=== PATIENT | male | born 1960 | race American Indian/Alaskan Native ===

== ENCOUNTER 2022-04-06 09:33 | Emergency (ER) | payer BC ==
[~2022-04-06] VITALS: Ht 175.3 cm; Wt 112.7 kg
[2022-04-06 09:49] VITALS: BP 110/85
== END 2022-04-06 11:02 | disposition home or self-care (01) ==
LOC: ER 09:34
DX: J40 Bronchitis, not specified as acute or chronic (principal); F17.200 Nicotine dependence, unspecified, uncomplicated; Z59.00 Homelessness unspecified; Z91.030 Bee allergy status
CPT/HCPCS: 71046; 99283

== ENCOUNTER 2024-02-01 05:55 | Emergency (ER) | payer BC ==
[~2024-02-01] VITALS: Ht 175.3 cm; Wt 120.0 kg
[2024-02-01 06:01] VITALS: TEMP 99
[2024-02-01 07:19] VITALS: BP 101/62; PULSE 73; RESP 18; O2SAT 97
== END 2024-02-01 08:32 | disposition home or self-care (01) ==
LOC: ER 05:55
DX: S83.91XA Sprain of unspecified site of right knee, initial encounter (principal); Z56.0 Unemployment, unspecified; Z91.030 Bee allergy status; Z60.2 Problems related to living alone; W19.XXXA Unspecified fall, initial encounter; Y93.89 Activity, other specified; Y92.89 Other specified places as the place of occurrence of the external cause; Y99.8 Other external cause status
CPT/HCPCS: 29530; 73564; 99284

== ENCOUNTER 2025-04-11 17:46 | Inpatient (IN) | payer BC, OTHER ==
[~2025-04-11] VITALS: Ht 175.3 cm; Wt 105.4 kg
--- NOTE | 2025-04-11 17:57 | ELECTROCARDIOGRAPH REPORT ---
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 Azul Lu Measurements Intervals [place] Rate: 155 P: 131 MI: 143 QRS: -19 QRSD: 126 T: 14 QT: 321 QTc: 516 Interpretive Statements Sinus tachycardia Nonspecific intraventricular conduction delay Posterior infarct, acute (LCx) ST elevation, consider inferior injury Lateral leads are also involved Baseline wander in lead(s) II,aVF Electronically Signed On 04-11-2025 18:02:[address] Azul Lu Please click the below link to view image of tracing.
[2025-04-11 18:13] LABS: BASOPHILS # (AUTO) 0.1 X10'3 (0-0.2); BASOPHILS % (AUTO) 0.4 % (0-1); EOSINOPHILS # (AUTO) 0.2 X10'3 (0-0.9); EOSINOPHILS % (AUTO) 0.8 % (0-6); HEMATOCRIT 32.5 % (42.0-52.0); HEMOGLOBIN 10.4 g/dl (14.0-17.9); LYMPHOCYTES # (AUTO) 11.5 X10'3 (1.1-4.8); LYMPHOCYTES % (AUTO) 37.2 % (21-51); MEAN CORPUSCULAR HEMOGLOBIN 31.6 PG (27.0-31.0); MEAN CORPUSCULAR HGB CONC 31.9 g/dL (33.0-36.5); MEAN CORPUSCULAR VOLUME 99.1 FL (78-98); MEAN PLATELET VOLUME 9.7 FL (7.4-10.4); MONOCYTES # (AUTO) 5.9 X10'3 (0-0.9); MONOCYTES % (AUTO) 18.9 % (2-12); NEUTROPHILS # (AUTO) 13.2 X10'3 (1.8-7.7); NEUTROPHILS % (AUTO) 42.7 % (42-75); PLATELET COUNT 138 X10'3 (140-440); RED BLOOD COUNT 3.28 X10'6 (4.70-6.10)
[2025-04-11 18:37] LABS: ANION GAP 13 (8-16); BLOOD UREA NITROGEN 19 MG/DL (7-18); BUN/CREATININE RATIO 13.8 (10.0-20.0); CALCIUM 8.4 MG/DL (8.5-10.1); CHLORIDE 104 MMOL/L (99-107); CREATININE 1.38 MG/DL (0.60-1.10); GLUCOSE 140 MG/DL (70-104); POTASSIUM 3.9 MMOL/L (3.5-5.1); PRO BRAIN NATRIURETIC PEPTIDE 2383 PG/ML (0-125); SODIUM 142 MMOL/L (135-145); eCRCL 56 ML/MIN; eGFR 52 ML/MIN
--- NOTE | 2025-04-11 18:47 | RADIOLOGY REPORT ---
CHEST RADIOGRAPH Indication: CP Technique: Single frontal view of the chest was obtained COMPARISON: None FINDINGS: The cardiac silhouette is enlarged. The lungs demonstrate bilateral patchy airspace opacities. The pu lmonary vasculature is prominent. There is no pleural effusion.. There is no pneumothorax. IMPRESSION: 1. Cardiomegaly with pulmonary vascular congestion and bilateral patchy airspace opacities.
[2025-04-11 18:49] LABS: TOTAL CELLS COUNTED 100
[2025-04-11 18:50] LABS: ANISOCYTOSIS 1+; PLATELET ESTIMATE DECREASED
--- NOTE | 2025-04-11 19:08 | Physician Documentation ---
History of Present Illness ~ General Chief Complaint: Multiple Medical Complaints Stated Complaint: CP Time Seen by MD: 18:52 Primary Medical Doctor: Chuck Mode of Arrival: POV History of Present Illness Initial Comments Patient presents to the emergency room for evaluation of rapid heartbeat. He initially went to his dentist who noted his heart rate who sent him to the [facility] who sent him here. He denies history of prior instance of rapid heart rate. He denies any instance of new flutters or shortness of breath in the past several weeks. That has far as he is concerned his only complaint is his dental pain in the left side of his child which has been going ongoing. Denies chest pain nausea or vomiting. As far as when his last vital signs were taken he believes 4-5 days ago at an oncology clinic and states there was nothing noted at this time. Medication Reconciliation Allergies: Coded Allergies: venom-honey bee (Verified Allergy, Unknown, 04/11/25) Past Medical History Past Medical History: Pneumonia Past Surgical History: orthopedic surgeries Alcohol Use: None Drug Use: none Lives with: Alone Lives In: Home Occupation: unemployed Review of Systems ROS All review of systems negative except as per HPI Physical Exam Physical Exam Vital Signs: Source: Oral, Heart Rate: 156, Respiratory Rate: 18, BP: 103/68, Pulse Oximetry: 98, Weight: 105.600 Oxygen Flow Rate: 0 Physical Exam General: Patient is awake, alert, oriented x4 in no acute distress and well appearing.~ Head: Normocephalic and atraumatic. Eyes: Conjunctival normal. EOMI. PERRL. ENT: Mucous membranes moist. Neck: Supple, trachea is midline. Chest: Clear to auscultation bilaterally without rales, rhonchi, or wheezes. There is no accessory muscle use or retractions. Cardiac: Tachycardic and regular without murmurs, gallops, or rubs. Abd: Soft, nondistended, nontender, with normoactive bowel sounds. No guarding, rebound, or rigidity. Progress Progress Note Chemical cardioversion: Status post informed written consent 12 mg of adenosine was administered to patient while on monitoring manager. He had in his seen did have affect and we are able to tease out the patient is in atrial flutter and not SVT. Patient tolerated procedure well without complication. Total time of procedure 30 seconds. Results/Orders Results/Orders Orders - NOAM MCKEON MD Diltiazem-Ns 100mg/100ml (Cardizem-Ns 10 (04/11/25 21:40) Page Hospitalist (04/11/25 21:40) Fill Out Med Reconciliation (04/11/25 21:40) Completed Orders - NOAM MCKEON MD Normal Saline 1000ml (Sodium Chloride 10 (04/11/25 19:05) Ondansetron Inj. (Zofran 4mg/2ml Vial) (04/11/25 19:05) Adenosine Inj. (Adenocard Inj.) (04/11/25 19:05) Diltiazem Iv (Cardizem Iv 5mg/Ml Inj.) (04/11/25 19:55) Medications Received in ER Medications (Trade) Dose Ordered Sig/Thuy Route PRN Reason Start Time Stop Time Status Last Admin Dose Admin Sodium Chloride 1,000 ml @ 1,000 mls/hr ONCE ONCE IV 04/11/25 19:05 04/11/25 20:04 DC 04/11/25 19:26 1,000 MLS/HR (Zofran 4mg/2ml vial) 4 mg ONCE ONCE IV 04/11/25 19:05 04/11/25 19:06 DC 04/11/25 19:26 4 MG (Adenocard inj.) 12 mg ONCE ONCE IV 04/11/25 19:05 04/11/25 19:06 DC 04/11/25 20:14 12 MG (Cardizem IV 5mg/ ml inj.) 5 mg ONCE ONCE IV 04/11/25 19:55 04/11/25 19:56 DC 04/11/25 20:19 5 MG Diltiazem HCl 100 ml @ 5 mls/hr Q20H IV 04/11/25 21:40 04/11/25 21:59 5 MLS/HR Vital Signs 04/11/25 04/11/25 04/11/25 04/11/25 17:56 19:01 19:03 19:57 Pulse 150 156 147 Resp 16 18 18 10 B/P (MAP) 122/76 103/68 (80) 90/67 (75) Pulse Ox 98 98 98 O2 Flow Rate 0 04/11/25 04/11/25 04/11/25 04/11/25 20:19 20:30 21:59 22:02 Temp 98.7 Pulse 151 146 153 152 Resp 18 19 B/P (MAP) 104/72 101/80 (87) 111/75 108/67 (81) Pulse Ox 96 98 O2 Flow Rate 0 0 04/11/25 04/11/25 22:36 22:40 Pulse 153 153 Resp 20 B/P (MAP) 116/90 126/74 (91) Pulse Ox 98 O2 Flow Rate 0 Laboratory Tests Test 04/11/25 17:58 04/11/25 19:37 04/11/25 21:07 White Blood Count 31.0 *H Red Blood Count 3.28 L Hemoglobin 10.4 L Hematocrit 32.5 L Mean Corpuscular Volume 99.1 H Mean Corpuscular Hemoglobin 31.6 H Mean Corpuscular Hemoglobin Concent 31.9 L Red Cell Distribution Width 18.0 H Platelet Count 138 L Mean Platelet Volume 9.7 Neutrophils (%) (Auto) 42.7 Lymphocytes (%) (Auto) 37.2 Monocytes (%) (Auto) 18.9 H Eosinophils (%) (Auto) 0.8 Basophils (%) (Auto) 0.4 Neutrophils # (Auto) 13.2 H Lymphocytes # (Auto) 11.5 H Monocytes # (Auto) 5.9 H Eosinophils # (Auto) 0.2 Basophils # (Auto) 0.1 CBC Comment Differential Total Cells Counted 100 Neutrophils % (Manual) 60.0 Band Neutrophils % 1.0 Lymphocytes % (Manual) 17.0 L Monocytes % (Manual) 18.0 H Eosinophils % (Manual) 2.0 Metamyelocytes % 1.0 H Myelocytes % 1.0 H Platelet Estimate Decreased Red Blood Cell Morphology Perf Basophilic Stippling Anisocytosis 1+ Macrocytosis 1+ Sodium Level 142 Potassium Level 3.9 Chloride Level 104 Carbon Dioxide Level 25.0 Anion Gap 13 Blood Urea Nitrogen 19 H Creatinine 1.38 H Estimated GFR/1.73 m2 52 BUN/Creatinine Ratio 13.8 Glucose Level 140 H Hemoglobin A1c 4.7 Calcium Level 8.4 L Troponin I High Sensitivity 9 9 11 Pro-B-Type Natriuretic Peptide 2383 H Albumin 4.0 Chemistry Comments Troponin I High Sens Percent Delta 0 22 Troponin I Hi Sens Absolute Change 0 2 EKG/XRAY/CT/US/VASC/MRI EKG : Additional Comment EKG interpreted by myself shows time of 1752, rate 155 sinus tachycardia normal axis intraventricular conduction delay, nonspecific ST-T changes Chest X-Ray : Additional Comments Exam: CHEST,SINGLE VIEW CHEST RADIOGRAPH Indication: CP Technique: Single frontal view of the chest was obtained COMPARISON: None FINDINGS: The cardiac silhouette is enlarged. The lungs demonstrate bilateral patchy airspace opacities. The pulmonary vasculature is prominent. There is no pleural effusion.. There is no pneumothorax. IMPRESSION: 1. Cardiomegaly with pulmonary vascular congestion and bilateral patchy airspace opacities. Medical Decision Making Findings Patient presented to the emergency room for evaluation of his heart rate. Dif ferentials include but are not limited to SVT, atrial fib atrial flutter, anxiety therefore emergent labs and imaging indicated. Patient underwent attempted chemical cardioversion unsuccessfully. We are able to tease out atrial flutter during the process of giving the patient adenosine. Cardizem drip initiated. This is a new diagnosis. Departure Admitted to Inpatient Unit: yes, to hospitalist Impression: Primary Impression: New onset atrial fibrillation Condition: Guarded Referrals: NO PRIMARY CARE PROVIDER (PCP) Signature Scribe Signature: No scribe Attestation: The note accurately reflects work and decisions made by me.Noam Mckeon MD 04/11/25 23:44 NOAM MCKEON MD Apr 11, 2025 19:08
[2025-04-11] MEDS: normal saline 1000ml 1,000 ML IV ONE (19:26)
[2025-04-11] MEDS: ondansetron/PF 4mg/2ml inj IV ONE (19:26)
[2025-04-11] MEDS: adenosine 3mg/ml 2ml vial IV ONE (20:14)
[2025-04-11] MEDS: diltiazem 5mg/ml 5ml inj. IV ONE (20:16)
[2025-04-11] MEDS: diltiazem-NS 100mg/100ml 100 ML IV SCH (21:59)
[2025-04-11] MEDS ORDERED: HYDROcodone/acetaminophen 5mg/325mg tablet PO PRN (23:10)
[2025-04-11] MEDS ORDERED: magnesium sulf-water 2g/50mL 50 ML IV PRN (23:10)
[2025-04-11] MEDS ORDERED: potassium Cl 40MEQ/1/2NS 520ml 520 ML IV PRN (23:10)
[2025-04-11] MEDS ORDERED: potassium Cl 20 mEq SR tablet PO PRN ×2 (23:10)
[2025-04-11] MEDS ORDERED: ondansetron/PF 4mg/2ml inj IV PRN (23:10)
[2025-04-11] MEDS ORDERED: magnesium sulf-water 4G/100mL 100 ML IV PRN (23:10)
[2025-04-11] MEDS ORDERED: magnesium Cl slow-release 64mg tablet PO PRN (23:10)
[2025-04-11] MEDS ORDERED: acetaminophen 325mg tablet PO PRN (23:10)
--- NOTE | 2025-04-11 23:23 | HISTORY AND PHYSICAL-Residence ---
History & Physical Providers to Resident Creating Document: SELENE BARTLETT RES ~ History of Present Illness Primary Medical Doctor: Chuck Reason for Admit\Complaint: referred by dentis for RVR History of Present Illness The patient is a 64-year-old male who presented to the ER for evaluation of a rapid heartbeat. He initially visited his dentist for management of a dental abscess in the left lower jaw. During that visit, his heart rate was noted to be significantly elevated, prompting a referral to [facility] and subsequently to the ER. The patient denies any prior history of palpitation, or episodes of rapid heart rate. He also denies associated symptoms such as shortness of breath, chest pain, skipped beats, or dizziness. Patient denies any prior history of RVR or palpitation. His only complaint at this time is persistent left jaw pain related to his dental abscess. His past medical history significant for chronic lymphocytic leukemia, diagnosed approximately one year ago after multiple infections. He follows with an oncologist at [facility], though he is unable to recall the name. He is not currently on chemotherapy or radiation and reports having last seen his oncologist within the past week. The patient appears agitated and exhibits mild tremors. He denies alcohol use or recreational drug use. While he denies any history of psychiatric illness, his behavior in responses suggest possible underlying psychiatric concerns. He reports smoking one pack of cigarettes daily for the past 50 years and expressed frustration about physicians repeatedly advising him to quit. He declined nicotine replacement therapy when offered, stating he would feel better if allowed to go outside to smoke, he is in potential risk for leaving against medical advice. He also voiced anger and distress toward his primary care provider at [facility], accusing them of being financially motivated and not concerned about his well-being. He reports being told he has diabetes but firmly denies having the diagnosis. Allergies: Coded Allergies: venom-honey bee (Verified Allergy, Unknown, 04/11/25) Home Medications Home Medications Active Past Medical History Past Medical History CLL Past Surgical History Surgical History Comment Orthopedic surgeries Past Social History Social History Comment Smokes a pack of cigarettes for 50 years, denies consuming alcohol or using recreational drugs Smoking: Cigarettes, Less than 1 pack/day Alcohol Use: None Drug Use: None Lives with: Alone Lives In: Home Occupation: unemployed ROS All Other Systems: Reviewed and Negative ROS As stated above in the HPI, otherwise all systems are reviewed and negative. Exam Vitals: Vital Signs Date Time Temp Pulse Resp B/P (MAP) Pulse Ox O2 Delivery O2 Flow Rate FiO2 04/11/25 22:40 153 20 126/74 (91) 98 0 04/11/25 20:30 98.7 General Appearance: Appears anxious and agitated HEENT: Atraumatic, normocephalic, KATHERIN, EOMI. Normal oropharynx, moist oral mucosa. Neck: Trachea midline. Supple, normal ROM. No JVD, bruit, lymphadenopathy or masses, or other lesions. Respiratory: Chest wall is symmetric and without deformity. No signs of respiratory distress. Equal breath sounds bilaterally. No wheeze, rub, Rales or crackles. Cardiac: RRR, no murmur, rub or gallop. Normal S1 and S2. GI: No tenderness. Abdomen symmetric, nondistended, soft, normal bowel sounds x4 quadrant normoactive. No guarding, no rebound or rigidity. No hepatosplenomegaly. No masses, no bruit, no flank pain bilaterally. Extremities: 2+ pedal edema bilateral lower extremities Skin: Intact, dry, warm, no rashes or petechia. Neuro: Speech is clear, alert and oriented x4. No sensory or motor deficit, DTRs normal. Cranial nerves II to XII intact. Psych: Normal affect, good eye contact, no apparent hallucination, normal speech. Diagnostic Data Last Recorded Lab Results: 04/11/[id number] Advance Care Planning Advanced Care plannin - 30 Minutes Additional Plan Assessment and plan: The patient is a 64-year-old male who presented to the ER for evaluation of a rapid heartbeat. He initially visited his dentist for management of a dental abscess in the left lower jaw. During that visit, his heart rate was noted to be significantly elevated, prompting a referral to [facility] and subsequently to the ER. New onset atrial fibrillation EKGs shows atrial fibrillation, likely new onset Patient is asymptomatic; denies palpitation, chest pain, SOB Admitted to ortho floor with telemetry [id number] Score = 2 Anticoagulation was offered, but the patient firmly refused Risk versus and benefits of anticoagulation were discussed in details, including stroke prevention versus bleeding risk On Cardizem drip ProBNP elevated; 2383, no prior baseline available CXR shows pulmonary vascular congestions 2+ bilateral lower extremity pitting edema on exam No SOB or chest pain Likely acute CHF exacerbation; preserved verses reduced EF Lasix 40 mg IV twice daily Daily weight, strict I&Os Follow echo, GDMT afterward Follow lipid panel, and hemoglobin A1c Dental abscess Source of localized infection Painful abscess in the left lower jaw, may be contributing to systemic stress Left jaw swollen, no systemic toxicity Empiric Unasyn initiated Pain Management with [facility] Acute kidney injury, likely renal tubular stasis Creatinine elevated to 1.38, unknown baseline Likely due to volume overload or infection Chronic lymphocytic [place] [address], consistent with known CLL Diagnosed one year ago, no current chemoradiation Last oncology follow up was last week at [facility] No acute intervention indicated unless signs of blast crisis or severe cytopenias Continue routine monitoring; outpatient Hematology follow up Tobacco use disorder Behavioral concerned Fifty pack-year history; continues one pack per day Declined nicotine patch, expressed frustration and agitation No current psychiatric diagnosis, but behavior suggests possible underlying mood disorder or poor coping Monitor for safety; may benefit from behavior health consult if agitation persists or interfere with care Ativan 1 mg p.o. given DVT prophylaxis: Heparin subQ Code status: Full code Selene Bartlett Internal Medicine Resident Date of Service: Apr 11, 2025 Billing Provider: JOHN CANDELARIO MD, SHAMS, RES Apr 11, 2025 23:23 JOHN CANDELARIO MD Apr 12, 2025 07:29
[2025-04-11] MEDS: furosemide 10 MG/1 ML 10ml inj IV SCH (23:35)
[2025-04-11] MEDS: PERFLUTREN PROTEIN-A MICROSPHR (Optison) 0.22 MG/ML 3ML VIAL IV ONE (23:36)
[2025-04-11 23:38] LABS: HEMOGLOBIN A1C 4.7 % (4.5-6.2)
[2025-04-12] VITALS (25 sets, daily range): BP systolic 93–129; BP diastolic 66–95; PULSE 135–145; RESP 14–30; TEMP 97.3–98.4; O2SAT 97–98
[2025-04-12] LABS: APTT 27 SECONDS (22-32); INR 1.1 INR; PROTHROMBIN TIME 10.9 SECONDS (9.0-12.0)
[2025-04-12 00:16] LABS: MAGNESIUM 2.4 MG/DL (1.5-2.4); THYROID STIMULATING HORMONE 4.88 ulU/ml (0.34-4.50)
[2025-04-12] MEDS: amiodarone 150mg/dext, iso-os 100 ML IV ONE (00:28)
[2025-04-12] MEDS: LORazepam 1 MG tablet PO ONE (00:36)
[2025-04-12] MEDS: amiodarone/D5 360MG/200ML BAG 200 ML IV SCH (00:43)
[2025-04-12] MEDS: normal saline 1000ml 1,000 ML IV SCH (00:50)
[2025-04-12] MEDS: metoprolol tartrate 1mg/ml inj IV SCH (01:15)
[2025-04-12] MEDS: ampicill/sulbac 1.5gm/NS 100ml 100 ML IV SCH (01:16)
[2025-04-12] MEDS: ampicill/sulbac 1.5gm/NS 100ml 100 ML IV ONE (01:21)
[2025-04-12] MEDS: normal saline 1000ml 1,000 ML IV ONE (05:39)
[2025-04-12 05:52] LABS: BASOPHILS # (AUTO) 0.2 X10'3 (0-0.2); BASOPHILS % (AUTO) 0.6 % (0-1); EOSINOPHILS # (AUTO) 0.2 X10'3 (0-0.9); EOSINOPHILS % (AUTO) 0.7 % (0-6); HEMATOCRIT 30.5 % (42.0-52.0); HEMOGLOBIN 9.3 g/dl (14.0-17.9); LYMPHOCYTES # (AUTO) 10.1 X10'3 (1.1-4.8); LYMPHOCYTES % (AUTO) 35.2 % (21-51); MEAN CORPUSCULAR HEMOGLOBIN 30.6 PG (27.0-31.0); MEAN CORPUSCULAR HGB CONC 30.6 g/dL (33.0-36.5); MEAN CORPUSCULAR VOLUME 100.1 FL (78-98); MEAN PLATELET VOLUME 9.1 FL (7.4-10.4); MONOCYTES # (AUTO) 6.2 X10'3 (0-0.9); MONOCYTES % (AUTO) 21.4 % (2-12); NEUTROPHILS # (AUTO) 12.1 X10'3 (1.8-7.7); NEUTROPHILS % (AUTO) 42.1 % (42-75); PLATELET COUNT 117 X10'3 (140-440); RED BLOOD COUNT 3.05 X10'6 (4.70-6.10); RED CELL DISTRIBUTION WIDTH 18.1 % (11.5-14.5)
[2025-04-12 05:56] LABS: ALANINE AMINOTRANSFERASE 22 U/L (12-78); ALBUMIN 3.4 G/DL (3.4-5.0); ALKALINE PHOSPHATASE 73 IU/L (46-116); ANION GAP 6 (8-16); ASPARTATE AMINO TRANSFERASE 10 U/L (10-37); BILIRUBIN,TOTAL 0.5 MG/DL (0.1-1.0); BLOOD UREA NITROGEN 16 MG/DL (7-18); BUN/CREATININE RATIO 15.1 (10.0-20.0); CALCIUM 8.3 MG/DL (8.5-10.1); CHLORIDE 108 MMOL/L (99-107); CHOL/HDL RATIO 3.9 (0.00-4.99); CHOLESTEROL 117 MG/DL (0-200); CREATININE 1.06 MG/DL (0.60-1.10); GLUCOSE 113 MG/DL (70-104); HDL CHOLESTEROL 30 MG/DL (35-60); LDL CHOLESTEROL 68 MG/DL (50-100); SODIUM 139 MMOL/L (135-145); TOTAL CARBON DIOXIDE 25.5 MMOL/L (24-32); TOTAL PROTEIN 6.8 G/DL (6.4-8.2); TRIGLYCERIDES 103 MG/DL (20-135); eCRCL 72 ML/MIN; eGFR 71 ML/MIN
[2025-04-12 06:12] LABS: WHITE BLOOD COUNT 28.7 X10'3 (4.5-11.0)
[2025-04-12] MEDS: K and/or MAG REPLACEMENT MC SCH (08:00)
[2025-04-12 08:42] LABS: TOTAL CELLS COUNTED 100
[2025-04-12 08:43] LABS: ANISOCYTOSIS 2+; PLATELET ESTIMATE DECREASED
[2025-04-12 10:22] LABS: FREE T4 (FREE THYROXINE) 1.01 NG/DL (0.73-1.40); PHOSPHORUS 3.3 MG/DL (2.3-4.5)
[2025-04-12 10:23] LABS: URIC ACID 7.3 MG/DL (3.5-7.2)
[2025-04-12 11:19] LABS: BILIRUBIN,URINE NEGATIVE (Neg); CLARITY,URINE CLEAR (Clear); COLOR,URINE YELLOW (Yellow); GLUCOSE, URINE NEGATIVE (Neg); KETONES,URINE NEGATIVE (Neg); LEUKOCYTE ESTERASE ,URINE NEGATIVE (Neg); NITRITES, URINE NEGATIVE (Neg); OCCULT BLOOD,URINE NEGATIVE (Neg); PROTEIN,URINE NEGATIVE (Neg); UROBILINOGEN,URINE 0.2 E.U/dL (0.2-1.0)
[2025-04-12 11:25] LABS: UA COLLECTION TYPE VOIDED
[2025-04-12 11:38] LABS: URINE AMPHETAMINE SCREEN NEGATIVE (Neg); URINE BARBITUATE SCREEN NEGATIVE (Neg); URINE BENZODIAZEPINES SCREEN NEGATIVE (Neg); URINE CANNABINOID SCREEN POSITIVE (Neg); URINE METHADONE SCREEN NEGATIVE (Neg); URINE PHENCYCLIDINE SCREEN NEGATIVE (Neg)
[2025-04-12 12:10] LABS: URINE COCAINE SCREEN NEGATIVE (Neg); URINE OPIATE SCREEN NEGATIVE (Neg)
[2025-04-12] MEDS: apixaban 5mg tablet PO SCH (12:25)
[2025-04-12 12:50] LABS: % IRON SATURATION 11 % (11-46); IRON 42 UG/DL (53-167); TOTAL IRON BINDING CAPACITY 370 UG/DL (259-388)
[2025-04-12 13:05] LABS: FERRITIN 11 NG/ML (26-388)
[2025-04-12] MEDS ORDERED: ipratropium/albuterol 3ml nebule NEB PRN (13:10)
[2025-04-12] MEDS: digoxin 250mcg/ml 2ml ampule IV ONE (13:15)
[2025-04-12 14:46] LABS: D-DIMER 1.91 MG/L FEU (0-0.50)
[2025-04-12] MEDS ORDERED: iohexol 350MG/ML 100ml bottle IV ONE (17:24)
--- NOTE | 2025-04-12 17:53 | PROGRESS NOTE- Residence ---
Progress Note - Resident Providers to CC Resident Creating Document: JENA DOBBS, RES ~ Antibiotic Timeout Antibiotic Ordered?: Yes Subjective The patient was seen and examined at bedside today. He has no symptoms but his heart rate has been ranging in 140s to 150s. His jaw pain is getting better. His was at bedside. Objective Vital Signs Date Time Temp Pulse Resp B/P (MAP) Pulse Ox O2 Delivery O2 Flow Rate FiO2 04/12/25 15:00 97.7 137 28 100/72 (81) 98 04/12/25 08:00 Room Air 04/12/25 01:49 0 Result Diagram: 04/12/25 0503 04/12/25 0503 Elderly male, A&O x4, not in acute distress Head: Normocephalic with an atraumatic Eyes: Pupils- 3mm, reacting to light, conjunctiva- anicteric Nose and throat: No polyps, septum- normal, no mucosal ulcers Neck: Supple, no lymphadenopathy, no carotid bruit Respiratory: No use of accessory muscles of respiration, Bilateral normal vesiscular breath sounds heard. No wheeze, rhochi or creps Cardiac: Tachycardia, S1-S2 heard, rhythm irregular, no gallop/murmur Abdomen: non distended, no tenderness, no organomegaly, bowel sounds - heard Extremities: no clubbing, 1+ pedal edema, no deformities, peripheral pulses - 2+ Skin: warm and dry, no rash, no purpura Neuro: No focal deficit, gross cranial nerve exam - normal Coagulation Studies Laboratory Tests Test 04/11/25 23:17 04/12/25 13:38 Prothrombin Time 10.9 SECONDS (9.0-12.0) INR International Normalized Ratio 1.1 INR Activated Partial Thromboplast Time 27 SECONDS (22-32) Coagulation Comments D-Dimer 1.91 MG/L FEU (0-0.50) H D-Dimer Comment Assessment Assessment The patient is a 64-year-old male who presented to the ER for evaluation of a rapid heartbeat. He initially visited his dentist for management of a dental abscess in the left lower jaw. During that visit, his heart rate was noted to be significantly elevated, prompting a referral to [facility] and subsequently to the ER. Plan Plan New onset atrial fibrillation [id number] Score 2 Rule out pulmonary embolism Patient continues to be in AFib/2 to 1 Aflutter. He is on amiodarone drip currently running at 0.5 mg/min. Started the patient on IV digoxin 500 mcg stat followed by 250 mcg x 2 after 6 hours each. We will check digoxin level tomorrow and start him on 250 mcg PO daily. Patient is asymptomatic; denies palpitation, chest pain, SOB. Started the patient on Eliquis 5 mg twice daily. D-dimer elevated 1.91. CTA chest ordered. Follow up with the results. Elevated proBNP likely secondary to AFib Possible CHFpEF exacerbation ProBNP elevated; 2383, no prior baseline available. Echocardiogram shows EF of 55-60%. CXR shows pulmonary vascular congestions. No crackles heard. 1+ pedal edema. No SOB or chest pain. Lasix 40 mg IV twice daily. Daily weight, strict I&Os. Dental abscess Source of localized infection Painful abscess in the left lower jaw, may be contributing to systemic stress Left jaw swollen, no systemic toxicity Continue IV Unasyn. Pain Management with [facility] 5 Acute kidney injury, likely renal tubular stasis Kidney function normalized. Continue to monitor BMP. Chronic lymphocytic [place] [address], consistent with known CLL. Diagnosed one year ago, no current chemoradiation. Last oncology follow up was last week at [facility]. No acute intervention indicated unless signs of blast crisis or severe cytopenias. Continue routine monitoring; outpatient Hematology follow up. Tobacco use disorder Fifty pack-year history; continues one pack per day. Declined nicotine patch. DVT prophylaxis: Eliquis Code status: Full code Disposition: Continue care in medical goncalves. Continue IV digoxin and follow up with digoxin level in the morning. Follow up with CTA chest and increase the eliquis dose to 10 mg twice daily if PE is present. Jena Dobbs MD Internal Medicine Resident, PGY-1 Date of Service: Apr 12, 2025 Billing Provider: GIO CHEN MD,JENA GOMEZ, RES Apr 12, 2025 17:53
--- NOTE | 2025-04-12 17:59 | CARDIOLOGY REPORT ---
APPROVED REPORT EXAM: Comprehensive 2D, Doppler, and color-flow Echocardiogram. Patient Location: [facility]5 B Heart Rate: 130's bpm Rhythm: ATRIAL FLUTTER Indications CONGESTIVE HEART FAILIRE ELEVATED HEART RATE Rn Acls: NONE Previous echo: NONE 2D Dimensions RVDd 4.6 cm IVSd 1.2 (0.7-1.1cm) LVDd 5.0 cm PWd 1.2 (0.7-1.1cm) IVSs 1.7 (0.8-1.2cm) LVDs 3.6 (2.5-4.0cm) PWs 1.6 (0.8-1.2cm) LVOT Diameter 2.13 (1.8-2.4cm) LVEF(%) 54.2 (>50%) Ao Asc Diam.3.79 cm IVC 19.11 mmFS (%) 28.2 % SV 65.2 ml CO 8.9 L/min M-Mode Dimensions Left Atrium(MM) 4.95 (2.5-4.0cm) Aortic Root 3.27 (2.2-3.7cm) Aortic Cusp Exc 2.21 (1.5-2.0cm) MV EPSS 0.7 (<0.5cm) Aortic Valve AoV Peak Josiah. 116.2 cm/s AoV VTI 16.2 cm AO Peak GR. 5.4 mmHg AO Mean GR. 3 mmHg LVOT VTI 11.31 cm LVOT Peak Josiah. 97.7 cm/s DENEEN(VTI)/BSA 2.48 cm2/m2 DENEEN (VTI) 2.48 cm2 Tricuspid Valve TR P. Velocity 253 cm/s RAP ESTIMATE 10 mmHg TR Peak Gr. 26 mmHg RVSP 36 mmHg LEFT VENTRICLE Normal LV size with low normal function. Mild concentric hypertrophy. LVEF is estimated at 55-60% due to rapid heart rate RIGHT VENTRICLE RV is moderately dilated in size with low normal function. RVSP is estimated at 36 mmHg. ATRIA Left atrium is mildly dilated. Right atrium appears atleast moderately dilated. AORTIC VALVE Trileaflet AV appears mildly sclerotic without stenosis. No insufficiency. MITRAL VALVE Mild MV annular calcification without gross stenosis. Leaflets are visualized & normal. Trace regurgi tation. TRICUSPID VALVE TV appears structurally normal with trace regurgitation. PULMONIC VALVE Normal PV without stenosis, physiologic insufficiency. GREAT VESSELS The aortic root is normal in size. IVC is normal in size and collapses greater than 50% with inspirat ion. PERICARDIUM Normal pericardium. No effusion. Prominent anterior epicardial fat pad is present. Other Information Study Quality: Adequate but tds Arch Conclusion Normal LV size with low normal function. Mild concentric hypertrophy. LVEF is estimated at 55-60% due to rapid heart rate RV is moderately dilated in size with low normal function. RVSP is estimated at 36 mmHg. Left atrium is mildly dilated. Right atrium appears atleast moderately dilated. Trileaflet AV appears mildly sclerotic without stenosis. No insufficiency. Mild MV annular calcification without gross stenosis. Leaflets are visualized & normal. Trace regurgi tation. TV appears structurally normal with trace regurgitation. Normal pericardium. No effusion. Prominent anterior epicardial fat pad is present.
[2025-04-12] MEDS: ipratropium/albuterol 3ml nebule NEB SCH (20:00)
[2025-04-12] MEDS: digoxin 250mcg/ml 2ml ampule IV SCH (20:19)
--- NOTE | 2025-04-12 20:54 | RADIOLOGY REPORT ---
PROCEDURE: CT CTA CHEST PE W/ IV CONTRAST 04/12/2025 05:39 PM INDICATION: high heart rate, SOB, elevated dimer COMPARISON: None TECHNIQUE: Coverage: Thorax IV contrast: Administered Phases: Arterial Multiplanar 3-D Maximum Intensity Projection images (MIP) reconstructions were created by the jozef bennett in the coronal and sagittal planes as part of the CT angiography protocol. Adverse events: None Medication laboratory values were reviewed to verify the patient meets criteria for contrast administ ration. All CT scans at this medical facility are performed using dose modulation techniques as appropriate t o a performed exam including the following: Automated exposure control was utilized; adjustment of th e MA and/or KV according to patient size; and use of iterative reconstruction technique. Radiation dose: CTDIvol 23.59 mGy, DLP 927.71 mGy*cm. FINDINGS: Thyroid gland is unremarkable. No pulmonary embolism. No aortic aneurysm or dissection. Pulmonary trunk is normal in size. Mild cardiomegaly. Pericardial recess fluid is noted. Subcentimeter mediastinal lymph nodes are noted. Bilateral hilar lymphadenopathy. No pneumothorax, pleural effusion or focal airspace consolidation. Lingula, right middle lobe and bib asilar atelectasis. Multiple hepatic cysts, largest measuring up to 7.8 cm. Additional subcentimeter hypodense hepatic l esions are noted that are too small to characterize. Mild splenomegaly. Mild gastric wall thickening. 1.9 cm left adrenal nodule measuring up to 7 Hounsfield units which may represent an adenoma. The soft tissues unremarkable. No destructive osseous lesions are noted. [id number] degenerati ve changes of the thoracic spine. IMPRESSION: No evidence of acute pulmonary emboli. No aortic aneurysm or dissection. Lingula, right middle lobe and bilateral lower lobe atelectasis. Subcentimeter mediastinal and bilateral hilar lymph nodes which may be reactive. Multiple hepatic cysts. Mild wall thickening of the stomach which due to inadequate distention/gastritis.
[2025-04-13] VITALS (21 sets, daily range): BP systolic 63–132; BP diastolic 43–92; PULSE 63–150; RESP 11–26; TEMP 97–98; O2SAT 91–98
[2025-04-13] MEDS: digoxin 250mcg/ml 2ml ampule IV SCH (01:44)
[2025-04-13 08:29] LABS: BASOPHILS # (AUTO) 0.1 X10'3 (0-0.2); BASOPHILS % (AUTO) 0.5 % (0-1); EOSINOPHILS # (AUTO) 0.2 X10'3 (0-0.9); EOSINOPHILS % (AUTO) 0.6 % (0-6); HEMATOCRIT 31.6 % (42.0-52.0); LYMPHOCYTES # (AUTO) 9.4 X10'3 (1.1-4.8); LYMPHOCYTES % (AUTO) 35.7 % (21-51); MEAN CORPUSCULAR HGB CONC 31.7 g/dL (33.0-36.5); MEAN CORPUSCULAR VOLUME 97.8 FL (78-98); MEAN PLATELET VOLUME 9.1 FL (7.4-10.4); MONOCYTES % (AUTO) 19.1 % (2-12); NEUTROPHILS # (AUTO) 11.6 X10'3 (1.8-7.7); NEUTROPHILS % (AUTO) 44.1 % (42-75); PLATELET COUNT 121 X10'3 (140-440); RED BLOOD COUNT 3.23 X10'6 (4.70-6.10); RED CELL DISTRIBUTION WIDTH 17.7 % (11.5-14.5)
[2025-04-13 08:43] LABS: ALANINE AMINOTRANSFERASE 17 U/L (12-78); ALBUMIN 3.4 G/DL (3.4-5.0); ALKALINE PHOSPHATASE 71 IU/L (46-116); ANION GAP 8 (8-16); ASPARTATE AMINO TRANSFERASE 10 U/L (10-37); BILIRUBIN,TOTAL 0.7 MG/DL (0.1-1.0); BLOOD UREA NITROGEN 12 MG/DL (7-18); BUN/CREATININE RATIO 11.4 (10.0-20.0); CALCIUM 8.5 MG/DL (8.5-10.1); CHLORIDE 107 MMOL/L (99-107); CREATININE 1.05 MG/DL (0.60-1.10); DIGOXIN 0.8 NG/ML (0.9-1.9); GLUCOSE 98 MG/DL (70-104); POTASSIUM 3.7 MMOL/L (3.5-5.1); SODIUM 145 MMOL/L (135-145); TOTAL CARBON DIOXIDE 30.3 MMOL/L (24-32); TOTAL PROTEIN 6.7 G/DL (6.4-8.2); eCRCL 73 ML/MIN; eGFR 72 ML/MIN
[2025-04-13 08:45] LABS: WHITE BLOOD COUNT 26.4 X10'3 (4.5-11.0)
[2025-04-13 10:03] LABS: ANISOCYTOSIS 1+; NUCLEATED RED BLOOD CELLS 1 /100WBC (0-0); PLATELET ESTIMATE DECREASED; TOTAL CELLS COUNTED 100
[2025-04-13 10:04] LABS: SMUDGE CELLS 2+
[2025-04-13] MEDS: metoprolol tartrate 25mg tablet PO SCH (10:31)
[2025-04-13] MEDS: digoxin 125mcg (0.125mg) tablet PO SCH (10:31)
--- NOTE | 2025-04-13 12:14 | PROGRESS NOTE- Residence ---
Progress Note - Resident Providers to CC Resident Creating Document: JENA DOBBS, RES ~ Antibiotic Timeout Antibiotic Ordered?: Yes Subjective The patient was seen and examined at bedside today. He has no subjective complaints. His heart rate settled down today after receiving metoprolol and digoxin. Awaiting recommendations from Cardiology. Objective Vital Signs Date Time Temp Pulse Resp B/P (MAP) Pulse Ox O2 Delivery O2 Flow Rate FiO2 04/13/25 10:31 108 04/13/25 04:00 24 107/79 (88) 04/13/25 02:00 97.0 98 Room Air 04/12/25 20:43 0 21 Result Diagram: 04/13/25 0802 04/13/25 0802 Elderly male, A&O x4, not in acute distress Head: Normocephalic with an atraumatic Eyes: Pupils- 3mm, reacting to light, conjunctiva- anicteric Nose and throat: No polyps, septum- normal, no mucosal ulcers Neck: Supple, no lymphadenopathy, no carotid bruit Respiratory: No use of accessory muscles of respiration, Bilateral normal vesiscular breath sounds heard. No wheeze, rhochi or creps Cardiac: S1-S2 heard, rhythm irregular, no gallop/murmur Abdomen: non distended, no tenderness, no organomegaly, bowel sounds - heard Extremities: no clubbing, no pedal edema, no deformities, peripheral pulses - 2+ Skin: warm and dry, no rash, no purpura Neuro: No focal deficit, gross cranial nerve exam - normal Coagulation Studies Laboratory Tests Test 04/11/25 23:17 04/12/25 13:38 Prothrombin Time 10.9 SECONDS (9.0-12.0) INR International Normalized Ratio 1.1 INR Activated Partial Thromboplast Time 27 SECONDS (22-32) Coagulation Comments D-Dimer 1.91 MG/L FEU (0-0.50) H D-Dimer Comment Assessment Assessment The patient is a 64-year-old male who presented to the ER for evaluation of a rapid heartbeat. He initially visited his dentist for management of a dental abscess in the left lower jaw. During that visit, his heart rate was noted to be significantly elevated, prompting a referral to [facility] and subsequently to the ER. Plan Plan New onset atrial fibrillation [id number] Score 2 Pulmonary embolism, ruled out Patient continues to be in AFib/2 to 1 Aflutter. He is on amiodarone drip currently running at 0.5 mg/min. Patient received IV digoxin 500 mcg stat followed by 250 mcg x 2 after 6 hours each. Digoxin level checked and started him on 250 mcg PO daily. Also started the patient on metoprolol tartrate 25 mg twice daily. Patient is asymptomatic; denies palpitation, chest pain, SOB. Continue Eliquis 5 mg twice daily. Awaiting recommendations from Cardiology. CTA ruled out pulmonary embolism. Follow up with venous ultrasound of bilateral lower extremities. Elevated proBNP likely secondary to AFib Possible CHFpEF exacerbation ProBNP elevated; 2383, no prior baseline available. Echocardiogram shows EF of 55-60%. CXR shows pulmonary vascular congestions. No crackles heard. No pedal edema. No SOB or chest pain. Lasix discontinued in view of soft blood pressures. Daily weight, strict I&Os. Dental abscess Source of localized infection Painful abscess in the left lower jaw, may be contributing to systemic stress Left jaw swollen, no systemic toxicity Continue IV Unasyn. Pain Management with [place] [facility] Acute kidney injury, likely renal tubular stasis Kidney function normalized. Continue to monitor BMP. Chronic lymphocytic [place] [address], consistent with known CLL. Diagnosed one year ago, no current chemoradiation. Last oncology follow up was last week at [facility]. No acute intervention indicated unless signs of blast crisis or severe cytopenias. Continue routine monitoring; outpatient Hematology follow up. Tobacco use disorder Fifty pack-year history; continues one pack per day. Declined nicotine patch. DVT prophylaxis: Eliquis Code status: Full code Disposition: Continue care in [facility] [place]. Continue p.o. digoxin and metoprolol tartrate 25 mg b.i.d. Awaiting recommendations from Cardiology. Jena Dobbs MD Internal Medicine Resident, PGY-1 Date of Service: Apr 13, 2025 Billing Provider: TRANG GASTON MD Common Visit Codes: [id number] INP/OBS CARE(HIGH) JENA DOBBS, RES Apr 13, 2025 12:14 TRANG GASTON MD Apr 13, 2025 18:33
[2025-04-13] MEDS: digoxin 250mcg/ml 2ml ampule ONE ×2 (20:04→22:21)
[2025-04-13] MEDS: amiodarone 200mg tablet PO SCH (22:19)
[2025-04-14] MEDS: digoxin 250mcg/ml 2ml ampule ONE (01:27)
[2025-04-14 05:53] LABS: BASOPHILS # (AUTO) 0.1 X10'3 (0-0.2); BASOPHILS % (AUTO) 0.5 % (0-1); EOSINOPHILS # (AUTO) 0.2 X10'3 (0-0.9); EOSINOPHILS % (AUTO) 0.8 % (0-6); HEMATOCRIT 32.8 % (42.0-52.0); HEMOGLOBIN 10.6 g/dl (14.0-17.9); LYMPHOCYTES # (AUTO) 9.3 X10'3 (1.1-4.8); LYMPHOCYTES % (AUTO) 37.2 % (21-51); MEAN CORPUSCULAR HEMOGLOBIN 31.2 PG (27.0-31.0); MEAN CORPUSCULAR HGB CONC 32.2 g/dL (33.0-36.5); MEAN CORPUSCULAR VOLUME 96.8 FL (78-98); MEAN PLATELET VOLUME 9.3 FL (7.4-10.4); MONOCYTES % (AUTO) 20.2 % (2-12); NEUTROPHILS # (AUTO) 10.3 X10'3 (1.8-7.7); NEUTROPHILS % (AUTO) 41.3 % (42-75); PLATELET COUNT 126 X10'3 (140-440); RED BLOOD COUNT 3.39 X10'6 (4.70-6.10); RED CELL DISTRIBUTION WIDTH 17.1 % (11.5-14.5); WHITE BLOOD COUNT 24.9 X10'3 (4.5-11.0)
[2025-04-14 06:00] VITALS: BP 113/76; PULSE 70; RESP 20; TEMP 97.8; O2SAT 98
[2025-04-14 06:29] LABS: ALANINE AMINOTRANSFERASE 16 U/L (12-78); ALBUMIN 3.4 G/DL (3.4-5.0); ALKALINE PHOSPHATASE 68 IU/L (46-116); ANION GAP 11 (8-16); ASPARTATE AMINO TRANSFERASE 16 U/L (10-37); BILIRUBIN,TOTAL 0.9 MG/DL (0.1-1.0); BLOOD UREA NITROGEN 17 MG/DL (7-18); BUN/CREATININE RATIO 14.5 (10.0-20.0); CALCIUM 8.7 MG/DL (8.5-10.1); CHLORIDE 107 MMOL/L (99-107); CREATININE 1.17 MG/DL (0.60-1.10); GLUCOSE 96 MG/DL (70-104); POTASSIUM 4.1 MMOL/L (3.5-5.1); SODIUM 146 MMOL/L (135-145); TOTAL CARBON DIOXIDE 28.1 MMOL/L (24-32); TOTAL PROTEIN 6.8 G/DL (6.4-8.2); eCRCL 65 ML/MIN; eGFR 63 ML/MIN
[2025-04-14 07:00] LABS: TOTAL CELLS COUNTED 100
[2025-04-14 07:01] LABS: PLATELET ESTIMATE DECREASED
[2025-04-14 07:02] LABS: ANISOCYTOSIS 1+; SMUDGE CELLS 1+
[2025-04-14 07:57] VITALS: PULSE 68; RESP 16; O2SAT 94
[2025-04-14 08:00] VITALS: RESP 20; O2SAT 98
[2025-04-14 11:00] VITALS: BP 115/75; PULSE 72; RESP 18; TEMP 98; O2SAT 98
--- NOTE | 2025-04-14 11:08 | ELECTROCARDIOGRAPH REPORT ---
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
--- NOTE | 2025-04-14 11:33 | VASCULAR REPORT ---
Bilateral lower extremity venous duplex Clinical History: Pain and swelling Comparison: None Technique: Duplex Doppler evaluation of the deep venous systems of both lower extremities from the common femora l veins to the popliteal veins including color Doppler and spectral/pulsed waveform analysis was perf ormed. Findings: RIGHT SIDE: The common femoral vein demonstrates appropriate compressibility and waveform variability. There is compressibility/patency of the great saphenous vein at the proximal thigh. The femoral vein demonstrates appropriate compressibility and waveform variability. The deep femoral vein demonstrates appropriate compressibility and waveform variability. The popliteal vein demonstrates appropriate compressibility and waveform variability. There is normal compressibility at the tibioperoneal trunk. LEFT SIDE: The common femoral vein demonstrates appropriate compressibility and waveform variability. There is compressibility/patency of the great saphenous vein at the proximal thigh. The femoral vein demonstrates appropriate compressibility and waveform variability. The deep femoral vein demonstrates appropriate compressibility and waveform variability. The popliteal vein demonstrates appropriate compressibility and waveform variability. There is normal compressibility at the tibioperoneal trunk. Impression: No right or left femoropopliteal venous thrombosis.
[2025-04-14] MEDS ORDERED: AMI200T PO (12:31)
[2025-04-14] MEDS ORDERED: APIX5TAB3 PO (12:31)
[2025-04-14] MEDS ORDERED: LAN0.125T PO (12:31)
[2025-04-14] MEDS ORDERED: LOP25T PO (12:31)
[2025-04-14] MEDS ORDERED: AMOX-115 PO (12:34)
--- NOTE | 2025-04-14 16:23 | CONSULTATION REPORT ---
History of Present Illness Providers to CC CC: JOVANI GARCIA MD ~ Reason for Admit\Admit Dx: Cardiology consultation Refering MD: Hospitalist service History of Present Illness This is a 64-year-old male who presented on April 11, 2025 secondary to rapid heartbeat two. He had initially went to his dentist who noticed the rapid heart beating sent him to his primary care provider who sent him here. Patient denies symptoms of shortness for breath, chest pain or pressure. He underwent echocardiogram that demonstrates preserved EF. Ultimately, converted to sinus rhythm with amiodarone. Currently, maintaining sinus rhythm. Plans to discharge home for outpatient follow up. Allergies: Coded Allergies: venom-honey bee (Verified Allergy, Unknown, 04/11/25) Home Medications Home Medications Active Augmentin 500-125 Tablet (Amoxicillin/Clavulanate Potassium) 1 Each Tablet 1 Tab PO Q12H 5 Days Lopressor tablet* (Metoprolol Tartrate) 25 Mg Tablet 25 Mg PO BID 30 Days Hold for SBP below 100mm Hg Hold for Heart Rate below 60. Digitek (Digoxin) 125 Mcg (0.125 Mg) Tablet 125 Mcg PO DAILY 30 Days Cordarone (Amiodarone HCl) 200 Mg Tablet 200 Mg PO BID 30 Days Take one pill twice daily for one week, and one pill once daily thereafter Eliquis (Apixaban) 5 Mg Tablet 5 Mg PO BID 30 Days Past Medical History Medical History Comment CLL Past Surgical History Surgical History Comment Orthopedic Past Social History Social History Comment Current smoker but reports he quit six days ago. No alcohol use. Denies recreational drugs. Physical Exam Last Vital Signs Recorded: RN Vital Signs have been reviewed: Yes, Temperature: 98.0, Source: Temporal, Heart Rate: 72, Respiratory Rate: 18, BP: 115/75, Pulse Oximetry: 98, Weight: 105.400 Physical Exam General: Awake, alert, oriented. No apparent distress Neck: Supple. Normal range of motion. No JVD Respiratory: Lungs are clear to auscultation bilaterally. No respiratory distress. Chest: Normal shape and size. No accessory muscle use. Cardiovascular: Regular rate and rhythm. S1-S2. No murmur, gallop, rub. Gastrointestinal: Abdomen is soft. Nontender to palpation. Bowel sounds present. Extremities: No lower extremity edema, cyanosis or clubbing. Neurologic: Alert and oriented x4. Nonfocal Psychiatric: Normal mood and affect. Skin: Normal color. Warm and dry. Review of Systems ROS Patient denies palpitations. No chest pain or pressure. No shortness a breath. No dizziness, lightheadedness or syncope. Was asked, but otherwise denies review of systems. Results Echocardiogram Echocardiogram Conclusion Normal LV size with low normal function. Mild concentric hypertrophy. LVEF is estimated at 55-60% due to rapid heart rate RV is moderately dilated in size with low normal function. RVSP is estimated at 36 mmHg. Left atrium is mildly dilated. Right atrium appears atleast moderately dilated. Trileaflet AV appears mildly sclerotic without stenosis. No insufficiency. Mild MV annular calcification without gross stenosis. Leaflets are visualized & normal. Trace regurgitation. TV appears structurally normal with trace regurgitation. Normal pericardium. No effusion. Prominent anterior epicardial fat pad is present. Dictated by:LEONARD DIAZ MD Dictation date and time:04/12/25 3257 Diagram Lab Result Diagram: 04/14/25 0534 04/14/25 0534 Assessment/Plan Additional Plan This is a 64-year-old male who presented secondary to rapid heartbeat. The following is his problem list: Atrial flutter Now converted to sinus rhythm --continue amiodarone for now. Risks/side effects reviewed. Follow up outpatient --discussed with the patient digoxin risks. Given that he is back in sinus rhythm we will discontinue it. This is reviewed with patient. --continue metoprolol 25 mg b.i.d. Chads Vasc score of 0. He was started on Eliquis 5 mg b.i.d.. We will follow up as an outpatient. CLL Follows with [facility] Oncology Dental abscess We will follow up as an outpatient Discussed with Dr. Shalom Garcia who is in agreement with the above. Supervising MD Supervising Physician: GUILLERMO Owen NP Apr 14, 2025 16:23
--- NOTE | 2025-04-14 19:28 | DISCHARGE SUMMARY-Residence ---
Discharge Summary Providers to CC Resident Creating Document: VERO DOBBS, RES ~ Discharge Summary Admission Diagnosis: NEW ONSET AFIB, CHF Hospital Course DATE OF ADMISSION: 04/12/2025 DATE OF DISCHARGE: 04/14/2025 Imaging: X-ray chest 04/11/2025: Cardiomegaly with pulmonary vascular congestion and bilateral patchy airspace opacities. Echocardiogram 04/12/2025: Normal LV size with low normal function. Mild concentric hypertrophy. LVEF is estimated at 55-60% due to rapid heart rate RV is moderately dilated in size with low normal function. RVSP is estimated at 36 mmHg. Left atrium is mildly dilated. Right atrium appears atleast moderately dilated. Trileaflet AV appears mildly sclerotic without stenosis. No insufficiency. Mild MV annular calcification without gross stenosis. Leaflets are visualized & normal. Trace regurgitation. TV appears structurally normal with trace regurgitation. Normal pericardium. No effusion. Prominent anterior epicardial fat pad is present. CTA chest 04/12/2025: No evidence of acute pulmonary emboli. No aortic aneurysm or dissection. Lingula, right middle lobe and bilateral lower lobe atelectasis. Subcentimeter mediastinal and bilateral hilar lymph nodes which may be reactive. Multiple hepatic cysts. Mild wall thickening of the stomach which due to inadequate distention/gastritis. Venous ultrasound 04/14/2025: No right or left femoropopliteal venous thrombosis. Discharge Diagnosis\Comment: New onset atrial fibrillation/atrial flutter Elevated proBNP likely secondary to AFib Possible CHFpEF exacerbation Dental abscess Acute kidney injury, likely renal tubular stasis Chronic lymphocytic leukemia/CLL Tobacco use disorder Operations\Procedures: None Consultants: Dr. Shalom Garcia, gre tutor Complications: None Condition on DC: Stable New Medications: Amox Tr/Potassium Clavulanate (Augmentin 500-125 Tablet) 1 Each Tablet 1 TAB PO Q12H for 5 Days, #10 TAB Amiodarone Hcl (Cordarone) 200 Mg Tablet 200 MG PO BID for 30 Days, #37 TAB Take one pill twice daily for one week, and one pill once daily thereafter Apixaban (Eliquis) 5 Mg Tablet 5 MG PO BID for 30 Days, #60 TAB Metoprolol Tartrate* (Lopressor tablet*) 25 Mg Tablet 25 MG PO BID for 30 Days, #60 TAB Hold for SBP below 100mm Hg Hold for Heart Rate below 60. Discharge Summary: History of present illness by admitting physician: The patient is a 64-year-old male who presented to the ER for evaluation of a rapid heartbeat. He initially visited his dentist for management of a dental abscess in the left lower jaw. During that visit, his heart rate was noted to be significantly elevated, prompting a referral to [facility] and subsequently to the ER. The patient denies any prior history of palpitation, or episodes of rapid heart rate. He also denies associated symptoms such as shortness of breath, chest pain, skipped beats, or dizziness. Patient denies any prior history of RVR or palpitation. His only complaint at this time is persistent left jaw pain related to his dental abscess. His past medical history significant for chronic lymphocytic leukemia, diagnosed approximately one year ago after multiple infections. He follows with an oncologist at [facility], though he is unable to recall the name. He is not currently on chemotherapy or radiation and reports having last seen his oncologist within the past week. The patient appears agitated and exhibits mild tremors. He denies alcohol use o r recreational drug use. While he denies any history of psychiatric illness, his behavior in responses suggest possible underlying psychiatric concerns. He reports smoking one pack of cigarettes daily for the past 50 years and expressed frustration about physicians repeatedly advising him to quit. He declined nicotine replacement therapy when offered. Course in the hospital: During the initial assessment in the ED, the patient's heart rate was in 150s, AFib. He was started on Cardizem drip initially but as his blood pressure started becoming softer, he was transitioned to amiodarone bolus and drip. He remained on the drip for two days. He was also started on digoxin IV and p.o. Heart rate slowed down after he was started on p.o. metoprolol. The patient was also started on anticoagulation with Eliquis 5 mg b.i.d. He eventually converted back to sinus rhythm. Cardiology was consulted for new onset AFib. They recommended discontinuing the digoxin as he converted to sinus rhythm. They will follow the patient in the outpatient setting. Echocardiogram was done which showed LVEF 55-60%, mild dilation of left atrium, RVSP 36, low normal RV function. Elevated D-dimer 1.91, PE ruled out through CTA chest and DVT ruled out through venous ultrasound of bilateral lower extremities. The patient also had dental abscess for which he was started on Unasyn. It is transition to Augmentin on discharge. He has CLL and his white count was high throughout. During the course of his hospital stay, the patient was stable and had no new complaints. Advice at discharge: Follow up with PCP in one week. Established care with gre tutor, Dr. Garcia. Continue all the medications and review with gre tutor for dose adjustments. Continue blood thinners until told otherwise by your gre tutor. Follow up with your oncologist at [facility] for CLL. Follow up with your dentist for dental abscess. In the case of worsening of symptoms, call 911 or go to the ER immediately. Examination at discharge: Elderly male, A&O x4, not in acute distress Head: Normocephalic with an atraumatic Eyes: Pupils- 3mm, reacting to light, conjunctiva- anicteric Nose and throat: No polyps, septum- normal, no mucosal ulcers Neck: Supple, no lymphadenopathy, no carotid bruit Respiratory: No use of accessory muscles of respiration, Bilateral normal vesiscular breath sounds heard. No wheeze, rhochi or creps Cardiac: S1-S2 heard, rhythm regular, no gallop/murmur Abdomen: non distended, no tenderness, no organomegaly, bowel sounds - heard Extremities: no clubbing, no pedal edema, no deformities, peripheral pulses - 2+ Skin: warm and dry, no rash, no purpura Neuro: No focal deficit, gross cranial nerve exam - normal Vital Signs Date Time Temp Pulse Resp B/P (MAP) Pulse Ox O2 Delivery O2 Flow Rate FiO2 04/14/25 11:00 98.0 72 18 115/75 (88) 98 Room Air 04/14/25 07:57 0 21 Laboratory Tests Test 04/13/25 08:02 04/14/25 05:34 04/14/25 11:19 White Blood Count 26.4 X10'3 24.9 X10'3 Red Blood Count 3.23 X10'6 3.39 X10'6 Hemoglobin 10.0 g/dl 10.6 g/dl Hematocrit 31.6 % 32.8 % Mean Corpuscular Volume 97.8 FL 96.8 FL Mean Corpuscular Hemoglobin 31.0 PG 31.2 PG Mean Corpuscular Hemoglobin Concent 31.7 g/dL 32.2 g/dL Red Cell Distribution Width 17.7 % 17.1 % Platelet Count 121 X10'3 126 X10'3 Mean Platelet Volume 9.1 FL 9.3 FL Neutrophils (%) (Auto) 44.1 % 41.3 % Lymphocytes (%) (Auto) 35.7 % 37.2 % Monocytes (%) (Auto) 19.1 % 20.2 % Eosinophils (%) (Auto) 0.6 % 0.8 % Basophils (%) (Auto) 0.5 % 0.5 % Neutrophils # (Auto) 11.6 X10'3 10.3 X10'3 Lymphocytes # (Auto) 9.4 X10'3 9.3 X10'3 Monocytes # (Auto) 5.0 X10'3 5.0 X10'3 Eosinophils # (Auto) 0.2 X10'3 0.2 X10'3 Basophils # (Auto) 0.1 X10'3 0.1 X10'3 CBC Comment Differential Total Cells Counted 100 100 Neutrophils % (Manual) 37.0 % 44.0 % Band Neutrophils % 3.0 % 2.0 % Lymphocytes % (Manual) 36.0 % 29.0 % Monocytes % (Manual) 17.0 % 24.0 % Eosinophils % (Manual) 3.0 % Metamyelocytes % 3.0 % 1.0 % Myelocytes % 1.0 % Nucleated Red Blood Cells 1 /100WBC Smudge Cells 2+ 1+ Platelet Estimate Decreased Decreased Red Blood Cell Morphology Perf Perf Basophilic Stippling Anisocytosis 1+ 1+ Macrocytosis 1+ 1+ Sodium Level 145 MMOL/L 146 MMOL/L Potassium Level 3.7 MMOL/L 4.1 MMOL/L Chloride Level 107 MMOL/L 107 MMOL/L Carbon Dioxide Level 30.3 MMOL/L 28.1 MMOL/L Anion Gap 8 11 Blood Urea Nitrogen 12 MG/DL 17 MG/DL Creatinine 1.05 MG/DL 1.17 MG/DL Estimated GFR/1.73 m2 72 ML/MIN 63 ML/MIN BUN/Creatinine Ratio 11.4 14.5 Glucose Level 98 MG/DL 96 MG/DL Calcium Level 8.5 MG/DL 8.7 MG/DL Total Bilirubin 0.7 MG/DL 0.9 MG/DL Aspartate Amino Transf (AST/SGOT) 10 U/L 16 U/L Alanine Aminotransferase (ALT/SGPT) 17 U/L 16 U/L Alkaline Phosphatase 71 IU/L 68 IU/L Total Protein 6.7 G/DL 6.8 G/DL Albumin 3.4 G/DL 3.4 G/DL Globulin 3.3 G/DL 3.4 G/DL Albumin/Globulin Ratio 1.0 1.0 Chemistry Comments Digoxin Level 0.8 NG/ML Troponin I High Sensitivity 50 ng/L Troponin I High Sens Percent Delta 354 % Troponin I Hi Sens Absolute Change 39 ng/L *Problems/Diagnosis: (1) Atrial fibrillation with RVR (2) Atrial flutter (3) Dental abscess Total Time Spent on D/C: > 30 Minutes Counseling Services Smoking & Tobacco Cessation: > 10 Minutes Date of Service: Apr 14, 2025 Billing Provider: TRANG GASTON MD, SOWMYA MANJARI, RES Apr 14, 2025 19:27
== END 2025-04-14 16:51 | disposition home or self-care (01) | DRG 308 ==
LOC: ER 17:47 → ED HOLD 23:07 → EDBEDREQ 04-12 02:00 → PCU 3S 04-12 02:53
PROVIDERS: ADMIT Surgery Surgical Critical Care; ATTEND Family Medicine
PROC: B32T1ZZ Computerized Tomography (CT Scan) of Left Pulmonary Artery using Low Osmolar Contrast (ICD-10-PCS; principal; 2025-04-12)
PROC: B3201ZZ Computerized Tomography (CT Scan) of Thoracic Aorta using Low Osmolar Contrast (ICD-10-PCS; 2025-04-12)
PROC: B32S1ZZ Computerized Tomography (CT Scan) of Right Pulmonary Artery using Low Osmolar Contrast (ICD-10-PCS; 2025-04-12)
DX: I48.91 Unspecified atrial fibrillation (principal); N17.0 Acute kidney failure with tubular necrosis; C91.10 Chronic lymphocytic leukemia of B-cell type not having achieved remission; I48.92 Unspecified atrial flutter; K04.7 Periapical abscess without sinus; I50.9 Heart failure, unspecified; F17.200 Nicotine dependence, unspecified, uncomplicated; Z91.030 Bee allergy status
CPT/HCPCS: 36415; 71045; 71275; 80048; 80053; 80061; 80162; 80305; 81003; 82728; 83036; 83540; 83550; 83605; 83735; 83880; 84100; 84145; 84439; 84443; 84466; 84484; 84550; 85007; 85025; 85379; 85610; 85730; 87081; 93005; 93306; 93970; 94760; 96361; 96374; 96375; 99285; G0378; J0153; J0282; J0295; J1160; J1938; J2405; J3490; J7030; J7040; Q9967

== ENCOUNTER 2025-04-29 21:01 | Inpatient (IN) | payer BC ==
[~2025-04-29] VITALS: Ht 175.3 cm; Wt 105.9 kg
[~2025-04-29 21:01] MED LIST: AMI200T PO; APIX5TAB3 PO; LOP25T PO
--- NOTE | 2025-04-29 21:14 | ELECTROCARDIOGRAPH REPORT ---
[facility] Test Date: 2025-04-29 Test Time: 21:08:03 Pat Name: YOEL SOLORZANO Department: EMERGENCY ROOM Room: Gender: M Historic Interpreter: OLIVIA : 1960 Requested By: JOSIAH TODD Order Number: [id number] Reading MD: Measurements Intervals [place] Rate: 134 P: 255 MT: 63 QRS: 65 QRSD: 130 T: 53 QT: 415 QTc: 620 Interpretive Statements Ectopic atrial tachycardia, unifocal Ventricular premature complex Right bundle branch block ST elevation, consider inferior injury Baseline wander in lead(s) II Please click the below link to view image of tracing.
--- NOTE | 2025-04-29 21:20 | Physician Documentation ---
History of Present Illness ~ Chief Complaint: Rapid Heartbeat Stated Complaint: "A FIB" Time Seen by MD: 21:19 Primary Medical Doctor: Hospitalist service HPI 64-year-old male, recent hospitalization for atrial fibrillation with RVR, who presents with rapid heart rate. He tells me that he was recently in the hospital because he had a fast heart rate, and a dental infection. He was discharged on a blood thinner but not sent home on any rate control medication because his heart went back to normal. He f inished his antibiotics about 5 days ago. Today, he felt like his dental infections coming back. He reports pain and swelling to the left lower jaw. He thought he probably needs antibiotics again. They then checked his heart rate and realize that it was fast again. Denies any chest pain, palpitations, syncope, dizziness, shortness of breath, or other associated symptoms. No new or worsening leg swelling. Medication Reconciliation Allergies: Coded Allergies: venom-honey bee (Verified Allergy, Unknown, 04/29/25) Scheduled Apixaban (Eliquis), 5 MG PO BID Discontinued Medications Amiodarone Hcl (Cordarone), 200 MG PO BID Discontinued Reason: patient no longer taking Metoprolol Tartrate* (Lopressor tablet*), 25 MG PO BID Discontinued Reason: patient no longer taking Past Medical History Past Medical History: Pneumonia Past Surgical History: orthopedic surgeries Alcohol Use: None Drug Use: none Lives with: Alone Lives In: Home Occupation: unemployed Review of Systems Constitutional: Denies: fever Cardiovascular: Reports: irregular heart rate; Denies: chest pain, lightheadedness, syncope, palpitations Physical Exam Vital Signs: Temperature: 98.0, Heart Rate: 134, Respiratory Rate: 20, BP: 96/69, Pulse Oximetry: 99, Weight: 105.910 Physical Exam General: This is a pleasant middle-aged man, sitting calmly in bed, partner at bedside HEENT: Atraumatic, oropharynx is moist Heart: Tachycardic, appears regular on palpation, heart rate in the 130s Lungs: Clear breath sounds bilateral, normal work of breathing, normal oxygen saturation on room air Abdomen: Soft, nondistended, nontender all quadrants Extremities: Warm and well-perfused. No posterior calf tenderness Neuro: Alert and oriented, no focal deficits Psychiatric: Calm and cooperative with exam Progress Results/Orders Results/Orders Orders - JOSIAH TODD MD Chest,Single View (04/29/25 21:13) Monitor (04/29/25 21:13) Saline Lock (04/29/25 21:13) Oxygen (04/29/25 21:13) Electrocardiogram (04/29/25 21:13) Hs Troponin I W Calculations (04/30/25 00:13) Amiodarone/D5 360mg/200ml Bag (Nexterone (04/29/25 21:55) Ampicill/Sulbac 1.5gm/Ns 100ml (Unasyn 1 (04/30/25 02:00) Page Hospitalist (04/29/25 22:52) Completed Orders - JOSIAH TODD MD Electrocardiogram (04/29/25 ) Chest,Single View (04/29/25 21:13) Cbc/Diff (04/29/25 21:13) BMP (04/29/25 21:13) PBNP (04/29/25 21:13) Hs Troponin I W Calculations (04/29/25 21:13) Hs Troponin I W Calculations (04/29/25 23:13) MG (04/29/25 21:22) Man Diff (04/29/25 21:22) Amiodarone 150mg/Dext, Iso-Os (Nexterone (04/29/25 21:55) Normal Saline 500ml Iv Soln (Sodium Chlo (04/29/25 22:25) Medications Received in ER Medications (Trade) Dose Ordered Sig/Thuy Route PRN Reason Start Time Stop Time Status Last Admin Dose Admin Amiodarone HCL/ Dextrose 100 ml @ 600 mls/hr ONCE ONCE IV 04/29/25 21:55 04/29/25 22:04 DC 04/29/25 21:59 600 MLS/HR Amiodarone HCL/ Dextrose 200 ml @ 33.333 mls/ hr Q6H IV 04/29/25 21:55 04/30/25 03:18 33.333 MLS/HR Sodium Chloride 500 ml @ 500 mls/hr Q1H IV 04/29/25 22:25 04/29/25 23:59 DC 04/29/25 22:55 500 MLS/HR Vital Signs 04/29/25 04/29/25 04/29/25 21:10 21:29 22:07 Temp 98.0 Pulse 134 133 Resp 20 18 16 B/P (MAP) 96/69 83/57 (66) Pulse Ox 99 97 Laboratory Tests Test 04/29/25 21:22 White Blood Count 29.2 *H Red Blood Count 2.81 L Hemoglobin 8.8 L Hematocrit 27.8 L Mean Corpuscular Volume 99.0 H Mean Corpuscular Hemoglobin 31.2 H Mean Corpuscular Hemoglobin Concent 31.5 L Red Cell Distribution Width 17.6 H Platelet Count 152 Mean Platelet Volume 8.8 Neutrophils (%) (Auto) 42.4 Lymphocytes (%) (Auto) 38.9 Monocytes (%) (Auto) 17.0 H Eosinophils (%) (Auto) 0.9 Basophils (%) (Auto) 0.8 Neutrophils # (Auto) 12.4 H Lymphocytes # (Auto) 11.4 H Monocytes # (Auto) 5.0 H Eosinophils # (Auto) 0.3 Basophils # (Auto) 0.2 CBC Comment Differential Total Cells Counted 100 Neutrophils % (Manual) 59.0 Band Neutrophils % 1.0 Lymphocytes % (Manual) 20.0 L Monocytes % (Manual) 18.0 H Eosinophils % (Manual) 1.0 Metamyelocytes % 1.0 H Smudge Cells 1+ Platelet Estimate Normal Giant Platelets Red Blood Cell Morphology Perf Basophilic Stippling Anisocytosis 1+ Macrocytosis 1+ Sodium Level 143 Potassium Level 4.0 Chloride Level 106 Carbon Dioxide Level 24.5 Anion Gap 13 Blood Urea Nitrogen 22 H Creatinine 1.23 H Estimated GFR/1.73 m2 60 BUN/Creatinine Ratio 17.9 Glucose Level 112 H Calcium Level 8.5 Magnesium Level 2.1 Troponin I High Sensitivity 13 Pro-B-Type Natriuretic Peptide 753 H Albumin 3.7 Chemistry Comments Consults/PCP Consults/PCP : Additional Comment Consult: I spoke to the internal medicine service, for admission in the hospital Medical Decision Making Additional info obtained from: old records Findings I reviewed his recent admission. He was treated with antibiotics for a dental infection and treated with multiple medications for his atrial fibrillation. He had difficulty due to low blood pressures. He was treated with amiodarone, then digoxin, then metoprolol. Differential Dx:Considerations: Include: angina / AR, atrial dysrhythmia, atrial fibrillation, atrial flutter, sinus tachycardia Differential Dx:Considerations: Include electrolyte disorder, Include heart failure, Include renal failure Assessment The patient presents with a rapid heart rate and concern for a dental infection. He is found to be in atrial fibrillation with RVR. This all appears similar to a recent admission where his heart rate was difficult to control. He is also mildly hypotensive. He was given amiodarone as he tolerated this well in the ne st. He will also be treated with antibiotics for possible developing dental infection. He will be admitted to the medicine service for further treatment. Departure Impression: Primary Impression: Atrial fibrillation with RVR Referrals: NO PRIMARY CARE PROVIDER (PCP) Critical Care Note Critical Care Note Critical Care Note The very real possibility of a deterioration of this patient's condition required the highest level of my preparedness for sudden, emergent intervention. I provided critical care services, which included medication orders, frequent reevaluations of the patient's condition and response to treatment, ordering and reviewing test results, and discussing the case with various consultants. Excludes time spent performing separately billable procedures. The critical care time associated with the care of the patient was 45 minutes in the management of atrial fibrillation with RVR requiring IV medications Signature Scribe Signature: lance Attestation: JOSIAH Berrios MD Apr 29, 2025 21:20
[2025-04-29 21:31] LABS: BASOPHILS # (AUTO) 0.2 X10'3 (0-0.2); BASOPHILS % (AUTO) 0.8 % (0-1); EOSINOPHILS # (AUTO) 0.3 X10'3 (0-0.9); EOSINOPHILS % (AUTO) 0.9 % (0-6); HEMATOCRIT 27.8 % (42.0-52.0); HEMOGLOBIN 8.8 g/dl (14.0-17.9); LYMPHOCYTES # (AUTO) 11.4 X10'3 (1.1-4.8); LYMPHOCYTES % (AUTO) 38.9 % (21-51); MEAN CORPUSCULAR HEMOGLOBIN 31.2 PG (27.0-31.0); MEAN CORPUSCULAR HGB CONC 31.5 g/dL (33.0-36.5); MEAN PLATELET VOLUME 8.8 FL (7.4-10.4); NEUTROPHILS # (AUTO) 12.4 X10'3 (1.8-7.7); NEUTROPHILS % (AUTO) 42.4 % (42-75); PLATELET COUNT 152 X10'3 (140-440); RED BLOOD COUNT 2.81 X10'6 (4.70-6.10); RED CELL DISTRIBUTION WIDTH 17.6 % (11.5-14.5)
[2025-04-29 21:52] LABS: WHITE BLOOD COUNT 29.2 X10'3 (4.5-11.0)
--- NOTE | 2025-04-29 21:55 | RADIOLOGY REPORT ---
CHEST RADIOGRAPH REASON FOR EXAM: CP COMPARISON: DI CHEST,SINGLE VIEW on DOS: 04/11/25 TECHNIQUE: One view of the chest is provided FINDINGS: The cardiomediastinal silhouette is stable. There is patchy bibasilar airspace disease. The re is no significant pleural effusion. No pneumothorax is identified. No acute osseous abnormality is identified. IMPRESSION: Patchy bibasilar airspace disease.
[2025-04-29] MEDS: amiodarone 150mg/dext, iso-os 100 ML IV ONE (21:59)
[2025-04-29 22:05] LABS: ALBUMIN 3.7 G/DL (3.4-5.0); ANION GAP 13 (8-16); BLOOD UREA NITROGEN 22 MG/DL (7-18); BUN/CREATININE RATIO 17.9 (10.0-20.0); CALCIUM 8.5 MG/DL (8.5-10.1); CHLORIDE 106 MMOL/L (99-107); CREATININE 1.23 MG/DL (0.60-1.10); GLUCOSE 112 MG/DL (70-104); MAGNESIUM 2.1 MG/DL (1.5-2.4); PRO BRAIN NATRIURETIC PEPTIDE 753 PG/ML (0-125); SODIUM 143 MMOL/L (135-145); TOTAL CARBON DIOXIDE 24.5 MMOL/L (24-32); eCRCL 62 ML/MIN; eGFR 60 ML/MIN
[2025-04-29] MEDS: amiodarone/D5 360MG/200ML BAG 200 ML IV SCH (22:19)
[2025-04-29 22:23] LABS: ANISOCYTOSIS 1+; PLATELET ESTIMATE NORMAL; TOTAL CELLS COUNTED 100
[2025-04-29 22:24] LABS: SMUDGE CELLS 1+
[2025-04-29] MEDS: normal saline 500ml IV soln 500 ML IV SCH (22:55)
[2025-04-30] VITALS (16 sets, daily range): BP systolic 105–140; BP diastolic 59–97; PULSE 68–130; RESP 12–25; TEMP 97.4–98.6; O2SAT 92–99
[2025-04-30] MEDS ORDERED: potassium Cl 40MEQ/1/2NS 520ml 520 ML IV PRN (00:35)
[2025-04-30] MEDS ORDERED: ondansetron/PF 4mg/2ml inj IV PRN (00:35)
[2025-04-30] MEDS ORDERED: mag hydrox/Alum hydrox/simeth 30ml oral suspension PO PRN (00:35)
[2025-04-30] MEDS ORDERED: acetaminophen 325mg tablet PO PRN (00:35)
[2025-04-30] MEDS ORDERED: magnesium sulf-water 4G/100mL 100 ML IV PRN (00:35)
[2025-04-30] MEDS ORDERED: potassium Cl 20 mEq SR tablet PO PRN ×2 (00:35)
[2025-04-30] MEDS ORDERED: magnesium sulf-water 2g/50mL 50 ML IV PRN (00:35)
[2025-04-30] MEDS ORDERED: morphine 2 MG/ML inj. syringe IV PRN (00:35)
[2025-04-30] MEDS ORDERED: HYDROcodone/acetaminophen 5mg/325mg tablet PO PRN (00:35)
[2025-04-30] MEDS ORDERED: magnesium hydroxide 30ml (MOM) UD suspension PO PRN (00:35)
[2025-04-30] MEDS ORDERED: magnesium Cl slow-release 64mg tablet PO PRN (00:35)
--- NOTE | 2025-04-30 00:49 | HISTORY AND PHYSICAL-Residence ---
History & Physical Providers to CC Resident Creating Document: VERONICA SY, RES CC: NANCIE CLEMENTS MD ~ History of Present Illness Primary Medical Doctor: Hospitalist service Reason for Admit\Complaint: Increased heart rate History of Present Illness A 64-year-old male with a past medical history of CLL presented to the ED in view of increased heart rate and assumption of reversion of his dental infection. Patient has started to feel that his left jaw is swollen again and checked his heart rate which was in 135. Per his instructions from prior discharge, patient came back in view of increased heart rate. Patient was completely asymptomatic, denies dizziness, chest pain, lightheadedness, headache, palpitations. Patient was recently discharged in the hospital in the last week when he was admitted for new onset AFib. Patient is supposedly to be on antiarrhythmics but somehow they fell off the List and patient has not taken any antiarrhythmic medications but on anticoagulation. Allergies: Coded Allergies: venom-honey bee (Verified Allergy, Unknown, 04/29/25) Home Medications Home Medications Active Eliquis (Apixaban) 5 Mg Tablet 5 Mg PO BID 30 Days Past Medical History Past Medical History CLL Past Surgical History Surgical History Comment Orthopedic surgeries Past Social History Social History Comment Smokes a pack of cigarettes for 50 years, denies consuming alcohol or using recreational drugs Lives at home by himself Goes to [facility] for primary health care Smoking: Cigarettes, Less than 1 pack/day Alcohol Use: None Drug Use: None Lives with: Alone Lives In: Home Occupation: unemployed ROS ROS All other systems reviewed in full and negative except for the pertinent positives mentioned in the HPI Constitutional: Denies: fever Cardiovascular: Reports: irregular heart rate; Denies: chest pain, lightheadedness, syncope, palpitations Exam Vitals: Vital Signs Date Time Temp Pulse Resp B/P (MAP) Pulse Ox O2 Delivery O2 Flow Rate FiO2 04/29/25 23:15 124 16 104/76 (85) 96 04/29/25 21:10 98.0 General: General: Morbidly obese man, Alert, awake, oriented, not in acute distress HEENT: PERRLA, no icterus, pallor, lymphadenopathy, carotid bruit Respiratory system: Bilateral vesicular breath sounds heard, no adventitious breath sounds CVS: Irregular heart rate, S1-S2 heard, no murmurs/rubs/gallop GI: Soft, nontender, no organomegaly, no guarding/rigidity, bowel sounds present Neuro: No focal neurological deficits present Extremities: No edema cyanosis clubbing/deformities Skin: Warm and dry Diagnostic Data Last Recorded Lab Results: 04/29/25212104/29/252121 Advance Care Planning Advanced Care plannin - 30 Minutes (I spent 20 minutes discussing various resuscitative measures and the patient decided to be full code) Additional Plan Assessment: A 62-year-old male with a past medical history of CLL, AFib presented to the ED in view of increased heart rate on pulse oximeter. Patient on arrival to the ED had atrial fibrillation on the EKG. Patient is admitted for the evaluation management of AFib with a RVR. Plan: AFib with RVR [id number] Score 2 EKG: Atrial fibrillation with a heart rate in 160s Patient received amiodarone bolus, continue amiodarone drip at 1 mg/kg per minute Continue Eliquis 5 mg p.o. b.i.d. Continue to monitor telemetry Plan for transitioned to p.o. antiarrhythmics Patient might require evaluation of sleep apnea as outpatient in view of recurrent AFib and difficult to control AFib Dental abscess Does not seem to have any further infection or reversion of infection in the moment Re-evaluate in a.m. and start antibiotic as required Prerenal NATALY probably secondary to renal tubular stasis Continue IV fluids at 100 cc/hour Continue to monitor BMP Elevated pro BNP No evidence of heart failure, no clinical signs and symptoms Echo from last admission shows EF of 55-60% CLL Elevated WBC count could be attributed to CLL Outpatient management at [facility] Morbid obesity Possible sleep apnea Outpatient follow up Tobacco use disorder Nicotine patch Code status: Full code Diet: Heart healthy Anticoagulation: Eliquis Disposition: Admit to PCU, continue to monitor telemetry. Veronica Sy MD Internal Medicine, PGY 1 Date of Service: Apr 30, 2025 Billing Provider: NANCIE CLEMENTS MD Common Visit Codes: 15343-YSSODHJ INP/OBS CARE (HIGH) Assessment/Plan Assessment Evaluated the patient with the help of residents. Discussed the case with them Reviewed note sby Dr.Siva Bonita PRAKASH. Agree with her assessments and plans. I also reviewed the patient's records,labs,radiology and notes from other providers. Will continue the present managements. VERONICA SY, RES Apr 30, 2025 00:48 NANCIE CLEMENTS MD Apr 30, 2025 05:14
[2025-04-30] MEDS: ampicill/sulbac 1.5gm/NS 100ml 100 ML IV ONE (00:53)
[2025-04-30] MEDS: normal saline 1000ml 1,000 ML IV SCH (01:43)
[2025-04-30] MEDS: ampicill/sulbac 1.5gm/NS 100ml 100 ML IV SCH (01:47)
[2025-04-30] MEDS: nicotine 21mg patch - 24 hr TD ONE (01:52)
[2025-04-30] MEDS: apixaban 5mg tablet PO SCH (07:22)
[2025-04-30] MEDS: docusate sod 100mg capsule PO SCH (07:23)
[2025-04-30] MEDS: K and/or MAG REPLACEMENT MC SCH (08:00)
[2025-04-30 08:01] LABS: MAGNESIUM 2.2 MG/DL (1.5-2.4); POTASSIUM 3.7 MMOL/L (3.5-5.1)
[2025-04-30 09:29] LABS: EOSINOPHILS # (AUTO) 0.2 X10'3 (0-0.9); EOSINOPHILS % (AUTO) 0.7 % (0-6); LYMPHOCYTES # (AUTO) 9.2 X10'3 (1.1-4.8)
[2025-04-30 09:31] LABS: BASOPHILS # (AUTO) 0.1 X10'3 (0-0.2); BASOPHILS % (AUTO) 0.6 % (0-1); HEMATOCRIT 26.1 % (42.0-52.0); HEMOGLOBIN 7.8 g/dl (14.0-17.9); MEAN CORPUSCULAR HEMOGLOBIN 30.3 PG (27.0-31.0); MEAN CORPUSCULAR HGB CONC 30.1 g/dL (33.0-36.5); MEAN CORPUSCULAR VOLUME 100.8 FL (78-98); MEAN PLATELET VOLUME 9.1 FL (7.4-10.4); MONOCYTES # (AUTO) 4.5 X10'3 (0-0.9); MONOCYTES % (AUTO) 17.7 % (2-12); NEUTROPHILS # (AUTO) 11.5 X10'3 (1.8-7.7); PLATELET COUNT 133 X10'3 (140-440); RED BLOOD COUNT 2.59 X10'6 (4.70-6.10); RED CELL DISTRIBUTION WIDTH 18.1 % (11.5-14.5)
[2025-04-30 09:34] LABS: WHITE BLOOD COUNT 25.5 X10'3 (4.5-11.0)
[2025-04-30 10:08] LABS: TOTAL CELLS COUNTED 100
[2025-04-30 10:09] LABS: ANISOCYTOSIS 2+; PLATELET ESTIMATE DECREASED
[2025-04-30 10:14] LABS: FREE T4 (FREE THYROXINE) 0.88 NG/DL (0.73-1.40); THYROID STIMULATING HORMONE 6.89 ulU/ml (0.34-4.50)
[2025-04-30] MEDS: amiodarone 200mg tablet PO ONE (10:49)
[2025-04-30] MEDS: amiodarone 200mg tablet PO SCH (20:14)
[2025-05-01 02:00] VITALS: BP 128/81; PULSE 71; RESP 15; TEMP 97.9; O2SAT 94
[2025-05-01 06:00] VITALS: BP 124/90; PULSE 76; RESP 14; TEMP 98; O2SAT 99
[2025-05-01 06:57] LABS: BASOPHILS # (AUTO) 0.2 X10'3 (0-0.2); BASOPHILS % (AUTO) 0.8 % (0-1); EOSINOPHILS # (AUTO) 0.2 X10'3 (0-0.9); EOSINOPHILS % (AUTO) 0.9 % (0-6); HEMATOCRIT 27.6 % (42.0-52.0); HEMOGLOBIN 8.7 g/dl (14.0-17.9); LYMPHOCYTES # (AUTO) 9.1 X10'3 (1.1-4.8); LYMPHOCYTES % (AUTO) 36.2 % (21-51); MEAN CORPUSCULAR HEMOGLOBIN 30.4 PG (27.0-31.0); MEAN CORPUSCULAR HGB CONC 31.6 g/dL (33.0-36.5); MEAN CORPUSCULAR VOLUME 96.3 FL (78-98); MEAN PLATELET VOLUME 8.8 FL (7.4-10.4); MONOCYTES # (AUTO) 4.2 X10'3 (0-0.9); MONOCYTES % (AUTO) 16.6 % (2-12); NEUTROPHILS # (AUTO) 11.5 X10'3 (1.8-7.7); NEUTROPHILS % (AUTO) 45.5 % (42-75); PLATELET COUNT 139 X10'3 (140-440); RED BLOOD COUNT 2.87 X10'6 (4.70-6.10); RED CELL DISTRIBUTION WIDTH 16.8 % (11.5-14.5)
[2025-05-01 07:04] LABS: WHITE BLOOD COUNT 25.2 X10'3 (4.5-11.0)
[2025-05-01 07:30] LABS: ALANINE AMINOTRANSFERASE 21 U/L (12-78); ALBUMIN 3.5 G/DL (3.4-5.0); ALKALINE PHOSPHATASE 70 IU/L (46-116); ANION GAP 8 (8-16); ASPARTATE AMINO TRANSFERASE 20 U/L (10-37); BILIRUBIN,TOTAL 0.7 MG/DL (0.1-1.0); BLOOD UREA NITROGEN 7 MG/DL (7-18); BUN/CREATININE RATIO 7.3 (10.0-20.0); CALCIUM 8.3 MG/DL (8.5-10.1); CHLORIDE 106 MMOL/L (99-107); CREATININE 0.96 MG/DL (0.60-1.10); GLUCOSE 97 MG/DL (70-104); MAGNESIUM 2.2 MG/DL (1.5-2.4); POTASSIUM 3.8 MMOL/L (3.5-5.1); SODIUM 139 MMOL/L (135-145); TOTAL CARBON DIOXIDE 25.5 MMOL/L (24-32); eCRCL 80 ML/MIN; eGFR 79 ML/MIN
[2025-05-01 07:34] LABS: ANISOCYTOSIS 1+; PLATELET ESTIMATE DECREASED; TOTAL CELLS COUNTED 100
[2025-05-01 08:00] VITALS: RESP 14; O2SAT 99
[2025-05-01 11:00] VITALS: BP 120/72; PULSE 67; RESP 23; TEMP 97.3; O2SAT 99
--- NOTE | 2025-05-01 11:26 | ELECTROCARDIOGRAPH REPORT ---
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 MICHAEL Aguilar Measurements Intervals [place] Rate: 60 P: 40 MD: 120 QRS: 20 QRSD: 125 T: 41 QT: 436 QTc: 436 Interpretive Statements Sinus rhythm Atrial premature complex Right bundle branch block Electronically Signed On 05-02-2025 9:11:[address] MICHAEL Aguilar Please click the below link to view image of tracing.
--- NOTE | 2025-05-01 13:16 | DISCHARGE SUMMARY ---
Discharge Summary Providers to CC ~ Discharge Summary Admission Diagnosis: AFIB W/ RVR Hospital Course DATE OF ADMISSION: 04/30/2025 DATE OF DISCHARGE: 05/01/2025 Discharge Diagnosis\Comment: AFib CLL till infection Operations\Procedures: None Consultants: None Complications: None Condition on DC: Stable Discharge Summary: History of Present Illness A 64-year-old male with a past medical history of CLL presented to the ED in view of increased heart rate and assumption of reversion of his dental infection. Patient has started to feel that his left jaw is swollen again and checked his heart rate which was in 135. Per his instructions from prior discharge, patient came back in view of increased heart rate. Patient was completely asymptomatic, denies dizziness, chest pain, lightheadedness, headache, palpitations. Patient was recently discharged in the hospital in the last week when he was admitted for new onset AFib. Patient is supposedly to be on antiarrhythmics but somehow they fell off the List and patient has not taken any antiarrhythmic medications but on anticoagulation. Physical exam at the time of discharge patient is alert and oriented x4 in no acute distress lying down comfortably speaking in full sentences HEENT normocephalic nontraumatic head PERRLA. EOMI. CVS first and second heart sounds are irregularly irregular Respiratory system is clear to auscultate bilaterally no rales rhonchi crackles or wheezing Abdomen is soft bowel sounds are positive nontender nondistended Extremities no clubbing cyanosis or edema Hospital course patient is a pleasant 64-year-old gentleman that was admitted in AFib with a heart rate of 135 patient was started on amiodarone his heart rate since then has settled back down in 70s. He was restarted on Eliquis. He has dental infection was treated with Augmentin dental infections and advised for close follow up with a dentist as an outpatient. I also gave him a course of probiotics to avoid getting any C diff from the Augmentin. *Problems/Diagnosis: (1) Atrial fibrillation with RVR Total Time Spent on D/C: > 30 Minutes Date of Service: May 01, 2025 Billing Provider: HUMBERTO MARY MD Common Visit Codes: 23010-WHU/OBS DISCH DAY >30min HUMBERTO MARY MD May 01, 2025 13:16
[2025-05-01] MEDS ORDERED: AMI200T PO (13:18)
[2025-05-01] MEDS ORDERED: AMOX-117 PO (13:18)
[2025-05-01] MEDS ORDERED: LACT1CAP89 PO (13:22)
[2025-05-02] MEDS ORDERED: levoTHYROXINE 25mcg tablet PO SCH (07:00)
== END 2025-05-01 13:52 | disposition home or self-care (01) | DRG 310 ==
LOC: ER 21:02 → ED HOLD 23:00 → PCU 3S 04-30 00:54
PROVIDERS: ADMIT Internal Medicine Critical Care Medicine; ATTEND Internal Medicine
DX: I48.91 Unspecified atrial fibrillation (principal); K04.7 Periapical abscess without sinus; Z85.6 Personal history of leukemia; Z56.0 Unemployment, unspecified; E66.01 Morbid (severe) obesity due to excess calories; Z68.34 Body mass index [BMI] 34.0-34.9, adult
CPT/HCPCS: 36415; 71045; 80048; 80053; 83605; 83735; 83880; 84132; 84439; 84443; 84484; 85007; 85025; 87040; 87081; 93005; 97116; 97162; 99291; G0378; J0282; J0295; J7030; J7040

== ENCOUNTER 2025-06-09 11:58 | Emergency (ER) | payer BC ==
[~2025-06-09] VITALS: Ht 175.3 cm; Wt 14.5 kg
[~2025-06-09 11:58] MED LIST changes: -AMI200T PO; +AMIO200T76 PO; +LACT1CAP89 PO; -LOP25T PO
[2025-06-09 12:09] VITALS: TEMP 98.7
--- NOTE | 2025-06-09 12:27 | Physician Documentation ---
History of Present Illness ~ Chief Complaint: Allergic Reaction Stated Complaint: ALLERGIC REACTION Time Seen by MD: 12:02 Primary Medical Doctor: Hospitalist service Source: patient, family Mode of Arrival: EMS Exam Limitations: no limitations HPI Patient who was diagnosed with CLL 1 year ago and has a history of AFib in with a medication reaction to his 1st chemo treatment today. They started the infusion and he felt nauseous so they stopped it and waited a little while and then started again and his partner states that he became very anxious and was breathing heavy. They stopped it again and sent him here for evaluation. Patient reports he feels fine now. Medication Reconciliation Allergies: Coded Allergies: venom-honey bee (Verified Allergy, Unknown, 04/29/25) Scheduled Amiodarone Hcl (Cordarone), 200 MG PO BID Apixaban (Eliquis), 5 MG PO BID Lactobac 41/B.bifid,Lactis/Fos (Ultimate Probiotic-10 25 Billn), 1 CAP PO DAILY Past Medical History Past Medical History: Pneumonia Past Surgical History: orthopedic surgeries Patient History: Patient reports no known family medical history. Alcohol Use: None Drug Use: none Lives with: Alone Lives In: Home Occupation: unemployed Review of Systems All Other Systems at this time: Reviewed and Negative Physical Exam Vital Signs: Temperature: 98.7, Source: Oral, Heart Rate: 99, Respiratory Rate: 19, BP: 18/65, Pulse Oximetry: 94, Weight: 14.500 Oxygen Flow Rate: 0 General Appearance: alert, WD/WN EENT: normal ENT inspection, moist mucous membranes Oropharynx/Lips: normal inspection Airway: patent Neck: normal inspection, full range of motion Cardiovascular: regular rate, rhythm, no edema, no JVD, no murmur Respiratory: lungs clear, normal breath sounds, no respiratory distress Chest: no accessory muscle use Gastrointestinal: normal palpation, non-tender Extremities: normal range of motion, non-tender Neurologic: oriented x4, memory intact Psychiatric: normal mood/affect Skin: normal color, warm/dry Lymphatic: no adenopathy Progress Progress Note Patient who is at baseline here in the ER and feels well. Normal exam. Normal vital signs. Unclear if there was a true reaction that was an allergic reaction versus just a medication side effect. Discharged home in good condition. Rec ommend follow up with oncology to consider next steps. Return here if new or worsening symptoms. Results/Orders Results/Orders Vital Signs 06/09/25 06/09/25 06/09/25 12:06 12:09 12:09 Temp 98.7 Pulse 87 99 Resp 20 19 B/P (MAP) 120/71 18/65 (49) Pulse Ox 96 94 O2 Flow Rate 0 0 Departure Disposition: 01 HOME / SELF CARE / HOMELESS Impression: Primary Impression: Medication reaction Qualified Codes: T50.905A - Adverse effect of unspecified drugs, medicaments and biological substances, initial encounter Condition: Stable Additional Instructions: Follow up with your oncologist to determine next steps for treatment. Referrals: NO PRIMARY CARE PROVIDER (PCP) Education Educated: Patient, Family Educated regarding: diagnosis, need for follow up Signature Scribe Signature: No scribe used Attestation: No scribe used MEGGAN BORJA MD Jun 09, 2025 12:27
[2025-06-09 12:37] VITALS: BP 115/78; PULSE 92; RESP 25; O2SAT 94
== END 2025-06-09 12:44 | disposition home or self-care (01) ==
LOC: ER 11:59
DX: R11.0 Nausea (principal); T45.1X5A Adverse effect of antineoplastic and immunosuppressive drugs, initial encounter; I48.91 Unspecified atrial fibrillation; Z79.899 Other long term (current) drug therapy; Z91.030 Bee allergy status; Z56.0 Unemployment, unspecified; Z60.2 Problems related to living alone; Y92.89 Other specified places as the place of occurrence of the external cause
CPT/HCPCS: 99283

== ENCOUNTER 2025-07-23 11:38 | Emergency (ER) | payer BC ==
[~2025-07-23] VITALS: Ht 170.2 cm; Wt 100.6 kg
--- NOTE | 2025-07-23 12:04 | Physician Documentation ---
History of Present Illness Chief Complaint: Abdominal Pain Stated Complaint: ABD PAIN Time Seen by MD: 12:02 Primary Medical Doctor: Hospitalist service HPI 64-year-old male, history of CLL, atrial fibrillation, who presents with abdominal pain He reports that starting today he developed severe right-sided abdominal pain. He states that it is 10/10. No history of similar. He denies any associated fevers, vomiting, diarrhea. He did have a normal bowel movement early this morning. He is noted to have a rapid heart rate, and does report history of atrial fibrillation. He is not currently on heart medications. He states that he has CLL, but is not undergoing current treatments. He does see an oncologist here in [place]. Medication Reconciliation Allergies: Coded Allergies: venom-honey bee (Verified Allergy, Unknown, 07/23/25) Scheduled Amiodarone Hcl (Cordarone), 200 MG PO BID Apixaban (Eliquis), 5 MG PO BID Lactobac 41/B.bifid,Lactis/Fos (Ultimate Probiotic-09 03 Billn), 1 CAP PO DAILY Past Medical History Past Medical History: Pneumonia Past Surgical History: orthopedic surgeries Patient History: Patient reports no known family medical history. Alcohol Use: None Drug Use: none Lives with: Alone Lives In: Home Occupation: unemployed Review of Systems Constitutional: Denies: fever Gastrointestinal: Reports: abdomen distended, abdominal pain; Denies: vomiting, constipated Physical Exam Vital Signs: Temperature: 97.8, Source: Oral, Heart Rate: 77, Respiratory Rate: 20, BP: 92/68, Pulse Oximetry: 98, Weight: 100.600 Oxygen Flow Rate: 0 Physical Exam General: This is an uncomfortable appearing middle-aged man who is rolling around holding his abdomen and moaning, partner at bedside HEENT: Atraumatic, oropharynx appears dry Heart: Significant tachycardic, appears irregular, appears atrial fibrillation on the monitor Lungs: normal work of breathing, normal oxygen saturation on room air Abdomen: Mildly distended abdomen, he has significant tenderness diffusely, but worse in the right lower abdomen with voluntary guarding Neuro: Alert and oriented, does not appear confused Psychiatric: Appears in mild distress, but is making jokes with staff Progress Results/Orders Results/Orders Orders - JOSIAH TODD MD Urinalysis, Cult If Indicated (07/23/25 11:58) Cbc/Diff (07/23/25 11:58) Lipase (07/23/25 11:58) CMP (07/23/25 11:58) Vital Signs 07/23/25 11:54 Temp 97.8 Pulse 77 Resp 20 B/P (MAP) 92/68 Pulse Ox 98 O2 Flow Rate 0 EKG/XRAY/CT/US/VASC/MRI EKG : Additional Comment I personally interpreted the EKG and this shows: Atrial fibrillation with RVR, rate 168, QTC 507 CT : Impression I personally interpreted the CT scan, and this shows a right-sided abdominal mass with possible hemorrhage Consults/PCP Consults/PCP : Additional Comment 2:40 p.m.: Consult: I spoke to Dr. Schafer, general surgery. He recommends that the patient will require transfer to a center with interventional radiology and likely liver surgeon. Medical Decision Making Additional info obtained from: old records Findings The patient has been admitted in the past for atrial fibrillation. He was treated with metoprolol and amiodarone Differential Dx:Considerations: Include: AAA, Aortic dissection, Appendicitis, Bowel obstruction, Constipation, Diverticular disease, Hepatitis, Ischemic bowel, Urinary obstruction, Urinary tract infection Additional Comments The patient presents with abdominal pain with a very tender abdomen. His workup shows findings consistent with dehydration as well as an elevated white blood cell count from his baseline related to his CLL. He was given aggressive IV fluids. A CT scan of the abdomen then shows a hemorrhagic mass that is likely related to cancer. I consulted our surgeon here at this hospital, but he felt that the patient needed a higher level of care and other specialty services. The patient was given further pain medication and IV fluids. A repeat hemogram shows slight decrease of his hemoglobin, but this is possibly dilutional. He was also treated with amiodarone for his atrial fibrillation with RVR, and did convert back to normal sinus rhythm. Overall, his abdominal pain seems most likely related to his abdominal mass and hemorrhage. Leukostasis from his elevated white blood cell count remains on the differential. No evidence of infection. Multiple phone calls were made to transfer centers, trying to find a oncologist or oncologic surgeon or other specialist for recommendations for treatment. The patient was signed out at shift change, pending consult and transfer for higher level of care. Date: Jul 23, 2025 Time: 20:09 Additional note by Lupillo Ortiz DO: I took over the care of this patient from previous physician. I reviewed any prev ious notes available, obtain my own history, review of systems and physical examination was performed by myself. I reviewed laboratory studies. The gentleman has 29% of reactive lymphocytes. Given marked elevation of his typical CLL white count, while there was no evidence of blast crisis, in combination with the fact that he is not clearing his lactic acid, and has soft pressures, there was some concern for infectious etiology. I do not think he would be harmed by prophylactic antibiotics. Additional fluids was provided. Pain management was also provided. Departure Impression: Primary Impression: Abdominal mass Additional Impressions: NATALY (acute kidney injury) Leukocytosis Atrial fibrillation with RVR Referrals: NO PRIMARY CARE PROVIDER (PCP) Critical Care Note Critical Care Note CRITICAL CARE TIME: [45] minutes Treatments/Evaluations: Close monitoring and treatment of unstable vital signs, cardiorespiratory, and neurologic status, while maintaining tight balance of fluid, respiratory, and cardiac interventions. This time includes discussing the case with the patient and the patients family. This time does not include all procedures stated elsewhere in this record. This time also includes reviewing old records, labs and radiological studies. This time includes examining and re- examining the patient. Additionally, this time also includes arranging care with admitting and consulting physicians. Signature Scribe Signature: na Date: Jul 23, 2025 Time: 20:09 No scribe Attestation: na Additional note by Lupillo Ortiz DO: I took over the care of this patient from previous physician. I reviewed any previous notes available, obtain my own history, review of systems and physical examination was performed by myself. Date: Jul 23, 2025 Time: 20:09 This note accurately reflects clinical decisions, work performed by myself, DO PEREZ Rouse THOMAS A MD Jul 23, 2025 12:04 LUPILLO ORTIZ DO Jul 23, 2025 20:10
[2025-07-23] MEDS: ondansetron/PF 4mg/2ml inj IV ONE (12:29)
[2025-07-23] MEDS: morphine 4 MG/ML inj SYRINge IV ONE ×2 (12:32→12:59)
[2025-07-23 12:36] LABS: MEAN PLATELET VOLUME 9.6 FL (7.4-10.4); RED CELL DISTRIBUTION WIDTH 22.5 % (11.5-14.5)
[2025-07-23 12:43] LABS: INR 1.2 INR
[2025-07-23 12:55] LABS: CREATININE 1.45 MG/DL (0.60-1.10); TOTAL CARBON DIOXIDE 23.7 MMOL/L (24-32); eCRCL 49 ML/MIN; eGFR 49 ML/MIN
[2025-07-23 12:58] LABS: BANDS% (MANUAL) 4.0 % (0-10); LYMPHOCYTES % (MANUAL) 4.0 % (21-51); MONOCYTES % (MANUAL) 11.0 % (2-12); NEUTROPHILS % (MANUAL) 56.0 % (42-75); NUCLEATED RED BLOOD CELLS 1 /100WBC (0-0); PLATELET ESTIMATE DECREASED; REACTIVE LYMPHOCYTES % 25.0 % (0-0)
[2025-07-23] MEDS: normal saline 1000ml 1,000 ML IV ONE ×2 (12:59→16:13)
[2025-07-23] MEDS ORDERED: iohexol 300mg/ml 100ml inj. ONE (13:05)
--- NOTE | 2025-07-23 13:08 | ELECTROCARDIOGRAPH REPORT ---
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 Ganesh Moreno Measurements Intervals [place] Rate: 168 P: 0 NM: 0 QRS: 57 QRSD: 112 T: 47 QT: 303 QTc: 507 Interpretive Statements Atrial fibrillation with rapid V-rate Incomplete right bundle branch block Electronically Signed On 07-27-2025 19:22:[address] Ganesh Moreno Please click the below link to view image of tracing.
--- NOTE | 2025-07-23 14:15 | RADIOLOGY REPORT ---
EXAM: CT CT ABDOMEN PELVIS W/ IV CONTRAST HISTORY: right sided abd pain, severe, hx CLL TECHNIQUE: Volumetric multidetector CT images of the abdomen and pelvis were obtained after the administration of intravenous contrast. All CT scans at this facility use dose modulation, iterative reconstruction, and/or weight based dosing when appropriate to reduce radiation dose to as low as reasonably achievable. COMPARISON: None FINDINGS: [LOWER CHEST]: Pneumatocele in the right lung base. Small age-indeterminate oval-shaped 3 mm pulmonary nodule in the left lung base.r small right epicardial lymph node, 0.6 cm. [LIVER]: Multiple indeterminate hypoattenuating lesions in the liver. Indeterminate heterogeneous oval-shaped mass with internal density measuring 8.1 x 7.1 cm possibly exophytic lesion extending anterior inferiorly from the right hepatic lobe, segment 4B. [GALLBLADDER AND BILIARY TREE]: No cholelithiasis. no biliary dilation. [SPLEEN]: Splenomegaly with the areas of hypointensity with the largest area measuring 4.1 cm [PANCREAS]: Unremarkable. [ADRENAL GLANDS]: Inconspicuous left adrenal gland nodule, 1.4 cm [KIDNEYS]: No hydronephrosis. No nephroureterolithiasis. No suspicious focal lesion. [BLADDER]: Unremarkable for the degree distention. [REPRODUCTIVE ORGANS]: Unremarkable. [BOWEL/MESENTERY]: Trace sliding hiatal hernia. No CT evidence of bowel obstruction. inflammatory stranding/edematous appearance along the right upper quadrant mesentery along the margin of the heterogeneous mass versus hematoma [ASCITES]: Small amount of ascites with inconspicuous layering hyperintensity which may represent hemoperitoneum [LYMPHADENOPATHY]: No pathologically enlarged lymph nodes by CT size criteria [VASCULATURE]: No aneurysmal dilatation. [ABDOMINAL WALL]: Unremarkable. [MUSCULOSKELETAL]: No acute fracture or aggressive focal osseous lesion. Multifocal degenerative change of the visualized spine. IMPRESSION: 1. Indeterminate heterogeneous oval-shaped mass with internal density measuring 8.1 x 7.1 cm possibly exophytic lesion extending anterior inferiorly from the right hepatic lobe, segment 4B. Different Consideration for hemorrhagic mass with subsequent hemoperitoneum. 2. Splenomegaly with areas of hypointensity with the largest area measuring 4.1 cm. 3. Indeterminate left adrenal gland nodule. 4. Overall imaging findings compatible with neoplastic disease however with acute findings of the dominant mass with likely internal hemorrhage and intraperitoneal extension. 5. Surgical consultation recommended.
[2025-07-23] MEDS: amiodarone 150mg/dext, iso-os 100 ML IV ONE (15:35)
[2025-07-23] MEDS: amiodarone/D5 360MG/200ML BAG 200 ML IV SCH (15:58)
[2025-07-23 16:15] LABS: MEAN PLATELET VOLUME 9.0 FL (7.4-10.4); RED CELL DISTRIBUTION WIDTH 22.1 % (11.5-14.5)
[2025-07-23 18:17] LABS: LEUKOCYTE ESTERASE ,URINE NEGATIVE (Neg); OCCULT BLOOD,URINE TRACE-INTACT (Neg)
[2025-07-23 18:22] LABS: UA COLLECTION TYPE NON-SPECIFIED
[2025-07-23 18:24] LABS: NITRITES, URINE NEGATIVE (Neg)
[2025-07-23 18:25] LABS: MUCUS STRANDS FEW /LPF (Neg); SQUAMOUS EPITHELIAL CELL,UR NONE SEEN /LPF (FEW)
[2025-07-23] MEDS: ondansetron/PF 4mg/2ml inj IV PRN (20:08)
[2025-07-23 20:33] LABS: LACTATE DEHYDROGENASE 328 U/L (85-227)
[2025-07-23] MEDS: normal saline 1000ML IV soln IVB ONE (20:37)
[2025-07-23 20:44] LABS: MEAN PLATELET VOLUME 9.6 FL (7.4-10.4); RED CELL DISTRIBUTION WIDTH 22.2 % (11.5-14.5)
[2025-07-23] MEDS: fentaNYL/PF 50MCG/1 ML 2ML syringe IV PRN (20:52)
[2025-07-23] MEDS: piperacillin/tazo 4.5gm/100ml 100 ML IV ONE (21:02)
[2025-07-23 22:32] VITALS: BP 128/78; PULSE 134; RESP 22; TEMP 98.1; O2SAT 97
== END 2025-07-23 22:37 | disposition short-term general hospital (02) ==
LOC: ER 11:39
DX: I48.20 Chronic atrial fibrillation, unspecified (principal); R19.00 Intra-abdominal and pelvic swelling, mass and lump, unspecified site; D72.829 Elevated white blood cell count, unspecified; N17.9 Acute kidney failure, unspecified; Z56.0 Unemployment, unspecified; Z91.030 Bee allergy status; Z60.2 Problems related to living alone
CPT/HCPCS: 36415; 74177; 80053; 81001; 82550; 83605; 83615; 83690; 84484; 85007; 85025; 85027; 85610; 85651; 86140; 87040; 93005; 96361; 96365; 96366; 96368; 96375; 96376; 99291; J0282; J0780; J1171; J2270; J2405; J2543; J3010; J7030; Q9967; 96367

== ENCOUNTER 2025-08-13 23:42 | Emergency (ER) | payer BC, OTHER ==
[~2025-08-13] VITALS: Ht 175.3 cm; Wt 101.4 kg
[2025-08-13 23:58] VITALS: TEMP 98.5
[2025-08-14] MEDS: normal saline 1000ml 1,000 ML IV ONE (00:48)
[2025-08-14 01:01] LABS: MEAN PLATELET VOLUME 8.2 FL (7.4-10.4); RED CELL DISTRIBUTION WIDTH 27.8 % (11.5-14.5)
[2025-08-14 01:11] LABS: CREATININE 2.27 MG/DL (0.60-1.10); TOTAL CARBON DIOXIDE 33.1 MMOL/L (24-32); eCRCL 34 ML/MIN; eGFR 29 ML/MIN
--- NOTE | 2025-08-14 02:48 | RADIOLOGY REPORT ---
CHEST RADIOGRAPH Indication: SEPSIS WORKUP Technique: 1 view Comparison: DI CHEST,SINGLE VIEW on DOS: 04/29/25, DI CHEST,SINGLE VIEW on DOS: 04/11/25 FINDINGS: Lines and Tubes: None Lungs/Pleura: [id number] right pleural effusion with compressive atelectasis. Bilateral perihilar interstitial opacities. No pneumothorax. Cardiomediastinum: Obscured, not well assessed. Other: No acute osseous abnormality. IMPRESSION: 1. Moderate to large right pleural effusion.
--- NOTE | 2025-08-14 03:03 | Physician Documentation ---
History of Present Illness Chief Complaint: Abdominal Pain Stated Complaint: SWELLING IN STOMACH Time Seen by MD: 02:34 OK to notify your PCP?: Yes Primary Medical Doctor: Hospitalist service Source: patient, RN/MD, RN notes reviewed, old records Mode of Arrival: POV Exam Limitations: no limitations HPI This patient was recently seen at our facility on 07/23/2025. Patient was transferred to [place] for the to they thought he had a hemorrhagic bleed from the liver turned out it was a hemorrhagic cyst his liver was cauterized he has was doing better fortunately he went into liver failure was on hemodialysis for four different events. He has been on home oxygen since then he has been on and off of AFib also on amiodarone he is currently on oral chemotherapy unfortunately he was diagnosed with CLL and CML. The patient states he has been constipated also complaining of increasing lower extremity edema. The patient he is now here for evaluation and care. He has not appointment with his oncologist on Friday. He denies any fevers chills or any other complaints at this time. He has a little bit frustrated with the lower extremity edema and he is in a wheelchair. Medication Reconciliation Allergies: Coded Allergies: venom-honey bee (Verified Allergy, Unknown, 07/23/25) Scheduled Amiodarone Hcl (Cordarone), 200 MG PO BID Apixaban (Eliquis), 5 MG PO BID Lactobac 41/B.bifid,Lactis/Fos (Ultimate Probiotic-10 25 Billn), 1 CAP PO DAILY Past Medical History Past Medical History: Pneumonia, *CANCER*, Lymphoma Past Surgical History: orthopedic surgeries Patient History: Patient reports no known family medical history. Smoking Status: Never smoker Alcohol Use: None Drug Use: none Lives with: Alone Lives In: Home Occupation: unemployed Review of Systems All Other Systems at this time: Reviewed and Negative Physical Exam Vital Signs: RN Vital Signs have been reviewed: Yes, Temperature: 98.5, Source: Oral, Heart Rate: 84, Respiratory Rate: 20, BP: 92/61, Pulse Oximetry: 98, Weight: 101.400 Oxygen Flow Rate: 4.0 Physical Exam General: The patient is well developed, well nourished, nontoxic appearing and is in no acute distress. Skin: [place], warm and dry with no rashes. HEENT: Head was normocephalic and atraumatic. Eyes - pupils equal, round, reactive to light and accommodation. Extraocular movements were intact. Conjunctivae were nonicteric. Ears - bilateral tympanic membranes were normal. The mouth and oropharynx were clear with moist mucous membranes. There were no pharyngeal exudates or erythema. Neck: Supple and nontender. There was no jugular venous distention, lymphadenopathy, thyromegaly or masses. Chest: Clear to auscultation bilaterally without wheezes, trace rales at the base but no rhonchi. No accessory muscle use. No dullness to percussion. Heart: Rate regular and rhythmic. S1, S2. No murmurs. Palpation of the chest wall was normal. No rubs or thrills. Abdomen: Soft, nontender and distended. Positive bowel sounds. No guarding or rebound. No hepatosplenomegaly or palpable masses. Extremities: No cyanosis, clubbing positive pitting 2+ edema. The patient moves all extremities. Pulses were equal and symmetric. Neurologic: Motor sensory grossly intact Psychologic: The patient was oriented to person, place and time. The patient demonstrated appropriate judgement and insight. Progress Results/Orders Reviewed/noted all lab results: Yes Results/Orders Orders - ZAUL LU MD Urinalysis, Cult If Indicated (08/14/25 00:06) Cbc/Diff (08/14/25 00:06) Culture Blood (08/14/25 00:36) Chest,Single View (08/14/25 00:36) Monitor (08/14/25 00:36) Oxygen (08/14/25 00:36) Saline Lock (08/14/25 00:36) Man Diff (08/14/25 00:47) Type And Screen (08/14/25 02:37) Lrpc - Active Bleeding (08/14/25 02:37) Completed Orders - AZUL LU MD Lipase (08/14/25 00:06) CMP (08/14/25 00:06) Normal Saline 1000ml (0.9% Sodium Chlori (08/14/25 00:40) Chest,Single View (08/14/25 00:36) Procalcitonin (08/14/25 00:36) Lacticsepsis (08/14/25 00:36) Medications Received in ER Medications (Trade) Dose Ordered Sig/Thuy Route PRN Reason Start Time Stop Time Status Last Admin Dose Admin Sodium Chloride 1,000 ml @ 1,000 mls/hr ONCE ONCE IV 08/14/25 00:40 08/14/25 01:39 DC 08/14/25 00:48 1,000 MLS/HR Vital Signs 08/13/25 08/14/25 08/14/25 08/14/25 23:58 00:49 00:51 01:48 Temp 98.5 Pulse 79 80 84 Resp 16 18 16 20 B/P (MAP) 92/51 82/48 (59) 92/61 (71) Pulse Ox 95 99 98 O2 Flow Rate 4.0 4.0 4.0 Laboratory Tests Test 08/14/25 00:47 White Blood Count 68.7 *H Red Blood Count 2.30 L Hemoglobin 7.0 *L Hematocrit 23.3 L Mean Corpuscular Volume 101.5 H Mean Corpuscular Hemoglobin 30.5 Mean Corpuscular Hemoglobin Concent 30.1 L Red Cell Distribution Width 27.8 H Platelet Count 125 L Mean Platelet Volume 8.2 Neutrophils (%) (Auto) 68.9 Lymphocytes (%) (Auto) 8.5 L Monocytes (%) (Auto) 22.0 H Eosinophils (%) (Auto) 0.2 Basophils (%) (Auto) 0.4 Neutrophils # (Auto) 47.4 H Lymphocytes # (Auto) 5.8 H Monocytes # (Auto) 15.1 H Eosinophils # (Auto) 0.1 Basophils # (Auto) 0.3 H CBC Comment Basophilic Stippling Sodium Level 140 Potassium Level 4.7 Chloride Level 101 Carbon Dioxide Level 33.1 H Anion Gap 6 L Blood Urea Nitrogen 42 H Creatinine 2.27 H Estimated GFR/1.73 m2 29 BUN/Creatinine Ratio 18.5 Glucose Level 113 H Lactic Acid Level 1.3 Calcium Level 7.9 L Total Bilirubin 0.8 Aspartate Amino Transf (AST/SGOT) 19 Alanine Aminotransferase (ALT/SGPT) 14 Alkaline Phosphatase 80 Total Protein 6.4 Albumin 2.4 L Globulin 4.0 Albumin/Globulin Ratio 0.6 L Lipase 43 Procalcitonin 0.26 Chemistry Comments Microbiology Date/Time Source Procedure Growth Status 08/14/25 00:47 Blood Iv Start Blood Culture - Preliminary NEGATIVE (LESS THAN 24 HOURS) Resulted Re-Evaluation Re-Evaluation : Re-Evaluation: Improved Progress While waiting in the ER patient had a massive large bowel movement and states he feels wonderful. Patient's blood pressures have been low but this patient is usually borderline hypotensive. Additionally patient's WBC is 68.7 hemoglobin has a bit low at 7.0 hematocrit 23 MCV 101. Patient's platelets are also bit low at 1:25 a.m.. From the patient's baseline that is about where he is initially his BUN was 42 creatinine 2.27 which is above his baseline during his last visit however speaking to the family he was actually on hemodialysis for four courses at [facility] so this level of creatinine at 2.27 is actually pretty reassuring for this particular patient. Patient was offered a blood transfusion it would help his edema as well as his low albumin of 2.4 and 3rd spacing. However patient does not want to stay in the hospital we had a discussion of risks benefits alternatives of of refusing the medications. He is going to see his oncologist on Friday uric acid LDH was added to the laboratory work. Patient was then discharged home since he is feeling much better from his abdominal pain standpoint. He will follow up on Friday as scheduled. As far as infectious etiology his procalcitonin is normal at 0.26 has a lactic acid is normal at 1.3. 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 Pulse oximetry monitor interpretation shows low oxygenation at 99% on 4 L, abnormal, my interpretation but patient's new baseline. Medical Decision Making Additional info obtained from: old records Differential Dx:Considerations: Include: Bowel obstruction, Cholangitis, Cholelithasis, Constipation, Esophagitis, Gastritis/PUD, Gastroenteritis, GI hemorrhage, Hernia, Hepatitis, Inflammatory BD, Ischemic bowel, Pancreatitis, Porphyria, Testicular torsion, Trauma, intraabdominal, Urinary obstruction, Urinary tract infection, Urolithiasis, Other Departure Disposition: HOME / SELF CARE / HOMELESS Impression: Primary Impression: Abdominal pain Qualified Codes: R10.84 - Generalized abdominal pain Additional Impressions: Constipation Qualified Codes: K59.00 - Constipation, unspecified Chronic renal insufficiency Qualified Codes: N28.89 - Other specified disorders of kidney and ureter CLL (chronic lymphocytic leukemia) CML (chronic myelocytic leukemia) Condition: Fair Discharge Instructions: Abdominal Pain (Nonspecific) Referrals: NO PRIMARY CARE PROVIDER (PCP) Education Educated: Patient, Family Educated regarding: diagnosis, treatment Signature Scribe Signature: No scribed Attestation: The note accurately reflects work and decisions made by me.Azul Lu MD 08/14/25 03:08 AZUL LU MD Aug 14, 2025 03:03
[2025-08-14 03:14] LABS: BANDS% (MANUAL) 1.0 % (0-10); LYMPHOCYTES % (MANUAL) 9.0 % (21-51); NEUTROPHILS % (MANUAL) 69.0 % (42-75); NUCLEATED RED BLOOD CELLS 1 /100WBC (0-0); PLATELET ESTIMATE DECREASED
[2025-08-14 03:17] LABS: METAMYLEOCYTES% (MANUAL) 2.0 % (0-0); MONOCYTES % (MANUAL) 19.0 % (2-12)
[2025-08-14 03:24] LABS: LACTATE DEHYDROGENASE 560 U/L (85-227)
[2025-08-14 03:26] VITALS: BP 92/64; PULSE 88; RESP 20; O2SAT 98
== END 2025-08-14 03:28 | disposition home or self-care (01) ==
LOC: ER 23:43
DX: K59.00 Constipation, unspecified (principal); R10.9 Unspecified abdominal pain; N18.9 Chronic kidney disease, unspecified; I48.91 Unspecified atrial fibrillation; Z79.899 Other long term (current) drug therapy; Z91.030 Bee allergy status; Z98.890 Other specified postprocedural states
CPT/HCPCS: 36415; 71045; 80053; 83605; 83615; 83690; 84145; 84550; 85007; 85025; 87040; 96360; 99284; J7030

== ENCOUNTER 2025-08-18 10:50 | Emergency (ER) | payer BC ==
[2025-08-18] VITALS (8 sets, daily range): PULSE 101–109; RESP 24–56; TEMP 99.1; O2SAT 93–100
[~2025-08-18] VITALS: Ht 175.3 cm; Wt 90.9 kg
--- NOTE | 2025-08-18 11:24 | ELECTROCARDIOGRAPH REPORT ---
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
[2025-08-18 11:29] LABS: RED CELL DISTRIBUTION WIDTH 28.2 % (11.5-14.5)
[2025-08-18 11:32] LABS: MEAN PLATELET VOLUME 8.5 FL (7.4-10.4)
[2025-08-18 12:07] LABS: CREATININE 2.00 MG/DL (0.60-1.10); PRO BRAIN NATRIURETIC PEPTIDE 948 PG/ML (0-125); TOTAL CARBON DIOXIDE 30.4 MMOL/L (24-32); eCRCL 38 ML/MIN; eGFR 34 ML/MIN
--- NOTE | 2025-08-18 12:08 | RADIOLOGY REPORT ---
CHEST RADIOGRAPH Indication: CP Technique: Single frontal view of the chest was obtained COMPARISON: DI CHEST,SINGLE VIEW on DOS: 08/14/25, DI CHEST,SINGLE VIEW on DOS: 04/29/25, CT CTA CHEST PE W/ IV CONTRAST on DOS: 04/12/25, DI CHEST,SINGLE VIEW on DOS: 04/11/25, CHEST,TWO VIEWS on DOS: 04/06/22 FINDINGS: Lines and Tubes: None Lungs: Right lower lobe airspace disease. Pleura: Small right pleural effusion. No pneumothorax. Cardiomediastinal contours: Unremarkable Bones: Unremarkable IMPRESSION: Unchanged right lower lobe airspace disease and small right pleural effusion.
[2025-08-18] MEDS: ipratropium/albuterol 3ml nebule NEB STA (12:13)
--- NOTE | 2025-08-18 12:19 | Physician Documentation ---
Addendum CHIEF COMPLAINT/HPI: The patient is a 64-year-old male who had CLL diagnosed in May 2024 and ?/CML diagnosed in 07/2025. He was evaluated at [facility] in [place] for the latter diagnosis. He is followed by Dr. Mccormack at [facility] oncology. He comes in with bilateral lower extremity swelling which was noted a week ago when he was started on Lasix and asked to be seen again in two weeks which would be one week from now. However, his legs hurt (right more than left) and he could not wait one more week for his appointment. He is on 4 L of oxygen around the clock at home. REVIEW OF SYSTEMS: Constitutional: Denies chills, fatigue, fever, weight gain or weight loss. HEENT: Denies hearing loss, sinus pressure or visual changes. Respiratory: Denies cough, shortness of breath or wheezing. Cardiovascular: Denies chest pain, pain while walking (claudication), edema or palpitations. Gastrointestinal: Denies abdominal pain, blood in stool, constipation, diarrhea, heartburn, loss of appetite, nausea or vomiting. Genitourinary: Denies painful urination (dysuria), excessive amount of urine (polyuria) or urinary frequency. Metabolic/Endocrine: Denies cold intolerance, heat intolerance, excessive thirst (polydipsia) or excessive hunger (polyphagia). Neurological: Denies dizziness, extremity numbness, extremity weakness, headaches, seizures or tremors. Psychiatric: Denies anxiety or depression. Integumentary: Denies breast discharge, breast lump, hives, mole change(s), rash or skin lesion. Musculoskeletal: Bilateral leg swelling and pain Hematologic: Denies easily bleeding, easily bruises, lymphedema or issues with blood clots. Immunologic: Denies food allergies or seasonal allergies. PHYSICAL EXAMINATION: Vitals and nursing note reviewed. Constitutional: General: Patient is awake, alert, oriented x 4 in no acute distress and well appearing. Speech is clear and lucid. Appearance: Normal appearance. Patient is not ill-appearing, toxic-appearing or diaphoretic. HENT: Head: Normocephalic and atraumatic. Mouth: Mucous membranes are moist. Pharynx: Oropharynx is clear. Eyes: General: No scleral icterus. Extraocular Movements: Extraocular movements intact. Pupils: Pupils are equal, round, and reactive to light. Neck: Supple, no Kernig or Brudzinski sign. Cardiovascular: Rate and Rhythm: Normal rate and regular rhythm. Heart sounds: No murmur heard. Pulmonary: Effort: Tachypneic. Breath sounds: Decreased breath sounds on the right side. Abdominal: General: There is no distension. Palpations: There is no fluid wave, hepatomegaly or mass. Tenderness: There is no abdominal tenderness. There is no guarding. Musculoskeletal: General: No swelling or deformity. Skin: Coloration: Skin is not jaundiced. Findings: No erythema or rash. Neurological: Mental Status: Patient is alert. MEDICAL DECISION MAKING: This 64-year-old male with CLL in atrial fibrillation (on Eliquis) presents with painful bilateral leg swelling without any erythema. He is also found to be tachypneic with a moderate to large right-sided pleural effusion which was present on a chest x-ray done four days ago when he was seen here and discharged. CTA shows patchy infiltrates in both lungs. The patient does meet sepsis criteria and I have started him on Zosyn and azithromycin He will require admission. 3:20 p.m.: I attempted to contact the patient's oncologist in [place], Dr. Mccormack ([phone]) and left a message. 4:01 p.m.: I spoke with our hospitalist who feels that this patient will be better cared for at a center with inpatient oncology. Departure Disposition: 30 STILL A PATIENT Impression: Primary Impression: Pneumonia Additional Impressions: CLL (chronic lymphocytic leukemia) Hypoxia Edema of lower extremity Condition: SHINE [place] MD Aug 18, 2025 12:19
[2025-08-18 12:37] LABS: LACTATE DEHYDROGENASE 516 U/L (85-227)
[2025-08-18 12:41] LABS: BANDS% (MANUAL) 2.0 % (0-10); EOSINOPHILS % (MANUAL) 1.0 % (0-6); LYMPHOCYTES % (MANUAL) 4.0 % (21-51); METAMYLEOCYTES% (MANUAL) 1.0 % (0-0); MONOCYTES % (MANUAL) 32.0 % (2-12); NEUTROPHILS % (MANUAL) 60.0 % (42-75); NUCLEATED RED BLOOD CELLS 2 /100WBC (0-0)
[2025-08-18 12:50] LABS: PLATELET ESTIMATE DECREASED
[2025-08-18 13:16] LABS: INR 1.1 INR
[2025-08-18] MEDS: furosemide 10 MG/1 ML 10ml inj IV ONE (13:27)
--- NOTE | 2025-08-18 13:34 | VASCULAR REPORT ---
Bilateral lower extremity venous duplex Clinical History: edema Comparison: VASC VL VENOUS on DOS: 04/14/25 Findings: Duplex Doppler evaluation of the deep venous systems of both lower extremities from the common femoral veins to the popliteal veins including color Doppler and spectral/pulsed waveform analysis was performed. InaRSaions Lower Extremity Swelling Vein Imaging (Right) CFV (R): Compressible, Spontaneous, Respirophasic, Augmentation Reflux: ms SFJ (R): Compressible, Spontaneous, Respirophasic, Augmentation Reflux: ms FEM (R): Compressible, Spontaneous, Respirophasic, Augmentation Reflux: ms POP (R): Compressible, Spontaneous, Respirophasic, Augmentation Reflux: ms DFV (R): Compressible, Spontaneous, Respirophasic, Augmentation Reflux: ms PTV (R): Compressible, Spontaneous, Respirophasic, Augmentation GSV (R): Compressible, Spontaneous, Respirophasic, Augmentation Reflux: ms Reflux: ms Peroneals (R): Compressible, Spontaneous, Respirophasic, Augmentation Reflux: ms Vein Imaging (Left) CFV (L): Compressible, Spontaneous, Respirophasic, Augmentation Reflux: ms SFJ (L): Compressible, Spontaneous, Respirophasic, Augmentation Reflux: ms FEM (L): Compressible, Spontaneous, Respirophasic, Augmentation Reflux: ms POP (L): Compressible, Spontaneous, Respirophasic, Augmentation Reflux: ms DFV (L): Compressible, Spontaneous, Respirophasic, Augmentation Reflux: ms PTV (L): Compressible, Spontaneous, Respirophasic, Augmentation Reflux: ms GSV (L): Compressible, Spontaneous, Respirophasic, Augmentation Reflux: ms Peroneals (L): Compressible, Spontaneous, Respirophasic, Augmentation Reflux: ms CONCLUSION Imaging reveals no evidence of significant stenosis and/or occlusion of the Carotid Arteries bilaterally. <50% stenosis visualized in the Common Carotid Arteries, Internal Carotid Arteries, and External Carotid Arteries bilaterally. Antegrade flow visualized in Vertebral Arteries bilaterally. Multiphasic Subclavian Arteries bilaterally.
[2025-08-18] MEDS: piperacillin/tazo 3.375gm/50ml 50 ML IV STA (13:43)
--- NOTE | 2025-08-18 14:31 | RADIOLOGY REPORT ---
Indication: Tachypnea, SOB Technique: CT axial images of the abdomen and pelvis are obtained with intravenous contrast. Coronal and sagittal reformats were obtained. Radiation Dose Information: CTDI volume is 24.4 mGy. Dose-length product is 965 mGy*cm Comparison: CT CTA CHEST PE W/ IV CONTRAST on DOS: 04/12/25 FINDINGS: No large defect within the main left and right pulmonary arteries. Segmental and subsegmental branches are suboptimally opacified/characterized. Trachea patent. No pneumothorax. Right pulmonary airspace consolidation most pronounced within the right middle and lower lobes. Moderate right pleural effusion. Patchy left lung airspace consolidation. Possible left lower lobe nodules 7 mm, 9 mm, 6 mm. Heart enlarged. No supraclavicular or axillary lymphadenopathy. Subcentimeter bilateral axillary lymph nodes. Splenomegaly. Splenic hypodense lesion measuring 1.6 cm. Left hepatic lobe cyst measuring 10 mm. Right hepatic lobe cyst measuring 2.5 cm. Other smaller hypodense lesions in the liver. 1.9 cm left adrenal nodule. No aggressive osseous process. Moderate thoracic degenerative disc disease. IMPRESSION: No evidence for large pulmonary embolism. Moderate right pleural effusion. Right lung airspace consolidation most pronounced in the right middle and lower lobes. Patchy left lung airspace consolidation. Left lung pulmonary nodules up to 9 mm. Recommend follow-up per Fleischner society criteria. Splenomegaly. Ascites fluid. Splenic hypodense lesion measuring 1.6 cm which can be further characterized with multiphasic MRI abdomen with and without contrast to evaluate. 1.8 cm left adrenal nodule which can be further characterized in the nonemergent setting with MRI of the abdomen, adrenal mass protocol. Other findings as described.
[2025-08-18 14:37] LABS: ABG BASE EXCESS 3.7 mmol/L (-2.0-3.0); ABG HCO3 27.0 mmol/L (21.0-28.0); ABG OXYGEN SATURATION 87.7 % (94.0-98.0); ABG PCO2 (T) 35.0 mmHg (35.0-48.0); ABG PH (T) 7.505 (7.350-7.450); ABG PO2 (T) 49.4 mmHg (83.0-108.0); ALLEN'S TEST POSITIVE; FCOHb 2.1 % (0.5-1.5); FHHb 12.0 % (0.0-5.0); FIO2 36.0 mmHg/%; FLOW 4 L/min; FMetHb 0.3 % (0.0-1.5); FO2Hb 85.6 % (94.0-98.0); MODE NASAL CANNULA; PATIENT TEMPERATURE 37.0; TOTAL HEMOGLOBIN 7.2 G/dl (13.5-17.5)
[2025-08-18] MEDS: azithromycin/NS 500mg/250ml 250 ML IV ONE (15:43)
[2025-08-18] MEDS: morphine 4 MG/ML inj SYRINge IV ONE (20:00)
[2025-08-18] MEDS: ondansetron/PF 4mg/2ml inj IV ONE (20:00)
[2025-08-18] MEDS: piperacillin/tazo 4.5gm/100ml 100 ML IV SCH (21:50)
[2025-08-19 00:27] VITALS: BP 107/64; PULSE 100; RESP 23; O2SAT 95
[2025-08-19] MEDS ORDERED: azithromycin/NS 500mg/250ml 250 ML IV SCH (08:00)
== END 2025-08-19 00:53 | disposition still patient (30) ==
LOC: ER 10:50
DX: J18.9 Pneumonia, unspecified organism (principal); C91.10 Chronic lymphocytic leukemia of B-cell type not having achieved remission; R09.02 Hypoxemia; R60.0 Localized edema; R06.02 Shortness of breath; Z20.822 Contact with and (suspected) exposure to COVID-19; Z79.899 Other long term (current) drug therapy
CPT/HCPCS: 36415; 36600; 71045; 71275; 80053; 82803; 83605; 83615; 83735; 83880; 84145; 84484; 84550; 85018; 85025; 85610; 87811; 93005; 93970; 94640; 94660; 96365; 96366; 96368; 96375; 99285; J0456; J1938; J2270; J2405; J2543; Q9967; 85007; 94760